=== PATIENT | female | born 1960 | race Caucasian/White ===

== ENCOUNTER 2021-11-01 09:58 | Inpatient (IN) ==
--- NOTE | 2021-11-01 11:11 | Emergency Department Note ---
History of Present Illness General Chief complaint: Illness Stated complaint: SLURRED SPEECH, DIARRHEA, Time Seen by Provider: 11/01/21 10:47 Source: patient and family Mode of arrival: wheelchair History of Present Illness Provider complaint: dizzy, slurred speech, diarrhea Onset (ago): day(s) 4 Associated symptoms: + loss of appetite, + malaise and + weakness; no chest pain, no fever/chills, no headaches, no nausea/vomiting or no syncope Treatments prior to arrival: none This is a 61-year-old female who presents the emergency department complaining of dizziness, difficulty walking, slurred speech, and diarrhea. Patient states 1 week ago she felt pressure in bilateral ears, denies rhinorrhea, nasal congestion, sore throat, or headaches at that time. She states Monday she went to her PCPs office and was told she had fluid behind both ears and was started on amoxicillin. Patient states she is been taking that since and not noticed any improvement. at bedside states Monday the began noticing she appeared dizzy and off balance and also had thickened and slightly slurred speech. Patient states she feels she can speak well adjust "comes out sounding funny". Patient states she does feel weak and has difficult time walking. states she has to hold onto things and shuffles at times. Patient does have a prior history of malignancy, and recent finding of a metastatic lesion to the liver. Patient had previously been treated with chemotherapy and radiation. She is scheduled to begin radiation to the lesion on her liver soon. Patient denies fevers or chills. states she was also tested for Covid last week which was negative. No prior history of vertigo. Pt seen during a time of high acuity and national emergency pandemic while wearing PPE. Home Medications Medication Instructions Recorded Confirmed Type multivitamin (Multiple Vitamins) 1 tab PO DAILY #90 tab 05/27/19 11/01/21 Rx buspirone 15 mg tablet 15 mg PO BID #60 tab 08/02/21 11/01/21 Rx amoxicillin 875 mg-potassium 1 tab PO BID 11/01/21 11/01/21 History clavulanate 125 mg tablet Allergies Allergy/AdvReac Type Severity Reaction Status Date / Time Aetejmn-GGS-GeE Reductase AdvReac LEG CRAMPS Verified 06/25/21 10:34 Inhibitor [Fawfsgb-Dke-Mrh Reductase Inhibitor] Past Med/Surg History Medical History (Updated 11/02/21 @ 17:45 by Roya Amezcua DO) Anxiety High blood pressure "at times will be elevated" Hx of skin cancer, basal cell NOSE Hyperlipidemia Internal hemorrhoids Perineal mass in female + CANCER (NEW DX) Surgical History Family history of reaction to anesthesia MOTHER-COULD FEEL EVERYTHING DURING PAST COLONOSCOPY History of tooth extraction Family History Mother No problems noted. Father Myocardial infarction Sister Endometrial cancer Son delivery Son No problems noted. Daughter No problems noted. 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 Beliefs That Will Affect Care: None marital status: Current Living Situation: Spouse Current Living Situation Comment: SPOUSE AND SON current occupational status: employed current occupation: [employer] Other Information That Helps Us Care for You: No Feels Safe at Home: Yes Safety Concerns: Feels Safe At This Time Childhood Exposure to Second-Hand Smoke: No caffeine: Yes (coffee, tea ) during the past year weight has: remained stable Dental Care, Regularly: Yes Physical Activity Frequency: Daily Seatbelt Use: always Sunscreen Use: Yes Assistive Devices: None Review of Systems A total of 10 systems reviewed and were otherwise negative All systems reviewed & are unremarkable except as noted in HPI & below Physical Exam Vital Signs Vital Signs - 24 hr 11/01/21 10:02 Temperature 36.4 C L Temperature Source Temporal Artery Scan Pulse Rate 109 H Respiratory Rate 16 Respiratory Effort / Characteristics Non-Labored Respiratory Depth Normal Blood Pressure 126/76 Blood Pressure Mean 92 Pulse Oximetry 98 Oxygen Delivery Method Room Air Sepsis Recent Fever Within 48 Hours No Sepsis New/Unexplained Change in Mental Status No Sepsis Action Taken by Nursing No Action Required GENERAL: alert, unwell appearing, well nourished, no distress, non-toxic EYE EXAM: normal conjunctiva, PERRL and EOM's grossly intact, slight rightward horizontal nystagmus OROPHARYNX: no exudate, no erythema, lips, buccal mucosa, and tongue normal and mucous membranes are moist NECK: supple, no nuchal rigidity, no adenopathy, non-tender LUNGS: Clear to auscultation. Normal chest wall mechanics, no w/r/r HEART: no murmurs, S1 normal and S2 normal ABDOMEN: abdomen soft, non-tender, normo-active bowel sounds, no masses, no rebound or guarding. BACK: Back is symmetrical on inspection and there is no deformity, no midline tenderness, no CVA tenderness. SKIN: no rashes and no bruising UPPER EXTREMITIES: upper extremities are grossly normal. FROM, nml pulses b/l. LOWER EXTREMITIES: No pitting edema. FROM, nml pulses b/l. NEURO EXAM: Normal sensorium, cranial nerves II-XII grossly intact, normal speech, no gross weakness of arms, no gross weakness of legs. Gross sensation intact. Course Administered Medications Buspirone HCl (Buspirone 15 Mg Tab) 15 mg PO BID [facility] Stop: 12/01/21 20:59 Last Admin: 11/02/21 08:00 Dose: 15 mg Documented by: [id number] Admin: 11/01/21 21:15 Dose: 15 mg Documented by: [id number] Enoxaparin Sodium (Enoxaparin Inj 40 Mg/0.4 Ml Syr) 40 mg SQ Q24H JUNITO Stop: 12/01/21 16:59 Last Admin: 11/01/21 17:22 Dose: 40 mg Documented by: [id number] Calcitonin [place] 200 units/ (Syringe) 1 mls @ 0 mls/sec SQ Q12H JUNITO Stop: 12/01/21 16:59 Last Admin: 11/02/21 05:28 Dose: 1 mls/sec Documented by: [id number] Admin: 11/01/21 17:21 Dose: 2 mls/sec Documented by: [id number] Potassium Chloride/Dextrose/Sod Cl (D5nss + 20meq Kcl) 20 meq in 1,000 mls @ 100 mls/hr IV .Q10H JUNITO; Protocol Stop: 12/02/21 13:59 Last Admin: 03/22/22 14:17 Dose: 100 mls/hr Documented by: [id number] Discontinued Medications Sodium Chloride (Nss 1000ml) 1,000 mls @ 125 mls/hr IV .Q8H JUNITO Stop: 12/01/21 11:14 Last Infusion: 11/01/21 14:31 Dose: 0 mls/hr Documented by: [id number] Admin: 11/01/21 11:19 Dose: 125 mls/hr Documented by: [id number] Parenteral Electrolytes (Plasma-Lyte A) 1,000 mls @ 100 mls/hr IV .Q10H JUNITO Stop: 12/01/21 13:59 Last Infusion: 11/02/21 13:39 Dose: 0 mls/hr Documented by: [id number] Admin: 11/02/21 10:54 Dose: 100 mls/hr Documented by: [id number] Infusion: 11/02/21 10:54 Dose: 175 mls/hr Documented by: [id number] Admin: 11/02/21 08:04 Dose: 175 mls/hr Documented by: [id number] Infusion: 11/02/21 08:04 Dose: 175 mls/hr Documented by: [id number] Admin: 11/02/21 03:49 Dose: 175 mls/hr Documented by: [id number] Infusion: 11/02/21 03:48 Dose: 0 mls/hr Documented by: [id number] Admin: 11/01/21 21:59 Dose: 175 mls/hr Documented by: [id number] Infusion: 11/01/21 21:59 Dose: 0 mls/hr Documented by: [id number] Admin: 11/01/21 14:31 Dose: 175 mls/hr Documented by: [id number] Zoledronic Acid (Reclast) 5 mg in 100 mls @ 400 mls/hr IV ONE ONE Stop: 11/01/21 17:29 Last Infusion: 11/01/21 17:59 Dose: 0 mls/hr Documented by: [id number] Admin: 11/01/21 17:25 Dose: 400 mls/hr Documented by: [id number] Ioversol (Optiray 320 125ml) 120 ml IV ONCE ONE Stop: 11/01/21 12:25 Last Admin: 11/01/21 12:24 Dose: 120 ml Documented by: [id number] Potassium Chloride (Potassium Chloride Crtab 20 Meq Tabcr) 40 meq PO NOW STA Stop: 11/01/21 12:03 Last Admin: 11/01/21 12:06 Dose: 40 meq Documented by: [id number] Potassium Chloride (Potassium Chloride Crtab 20 Meq Tabcr) 20 meq PO NOW STA Stop: 11/02/21 13:35 Last Admin: 11/02/21 14:18 Dose: 20 meq Documented by: [id number] Medical Decision Making Differential Diagnosis Differential diagnosis includes etiologies such as benign positional vertigo, dehydration, hypovolemia, anemia, tumor, infection, hypoglycemia, electrolyte abnormalities, cardiac sources, intracerebral event, toxicologic, neurologic, as well as others were entertained. Medical Records Attestation: I reviewed the patient's medical records. Home Medications Current Medication List: was personally reviewed by me Laboratory Data Attestation: I reviewed the patient's lab results. Result diagrams: 11/02/21 06:52 11/02/21 06:52 Lab Results 11/01/21 11/01/21 11/01/21 Range/Units 10:23 10:23 10:23 WBC 10.79 (4.8-10.8) K/uL RBC 4.02 L (4.2-5.4) M/uL Hgb 12.1 (12.0-16.0) g/dL Hct 36.0 L (37-47) % MCV 89.6 (80-100) fL MCH 30.1 (25-34) pg MCHC 33.6 (32-36) g/dL RDW Std Deviation 43.2 (36.4-46.3) fL RDW Coeff of Joanne 13.2 (11.5-14.5) % Plt Count 414 H (130-400) K/uL MPV 9.6 (7.4-10.4) fL Immature Gran % (Auto) 0.1 % Neut % (Auto) 90.2 % Lymph % (Auto) 7.5 % [place] % (Auto) 1.9 % Eos % (Auto) 0.1 % Baso % (Auto) 0.2 % Neut # (Auto) 9.74 H (1.4-6.5) K/uL Lymph # (Auto) 0.81 L (1.2-3.4) K/uL [place] # (Auto) 0.20 (0.11-0.59) K/uL Eos # (Auto) 0.01 (0-0.5) K/uL Baso # (Auto) 0.02 (0-0.2) K/uL Immature Gran # (Auto) 0.01 (0.00-0.02) K/uL Sodium 137 (136-145) mmol/L Potassium 2.7 L (3.5-5.1) mmol/L Chloride 94 L (98-107) mmol/L Carbon Dioxide 34 H (21-32) mmol/L Anion Gap 9 (3-11) BUN 25 H (6-23) mg/dl Creatinine 0.99 (0.6-1.2) mg/dl Est Cr Clr Drug Dosing 52.5 ml/min Est GFR ( Amer) 71.3 ml/min Est GFR (Non-Af Amer) 61.5 ml/min BUN/Creatinine Ratio 25.3 H (10-20) Glucose 117 H (70-99(Fasting)) mg/dl Calcium 16.9 H* (8.5-10.1) mg/dl Ionized Calcium (1.12-1.32) mmol/L Magnesium 1.9 (1.7-2.4) mg/dl Total Bilirubin 0.8 (0.2-1.0) mg/dl AST 36 (13-39) U/L ALT 33 (7-52) U/L Alkaline Phosphatase 217 H (34-104) U/L Troponin I < 0.03 (0-0.04) ng/ml Total Protein 8.0 (6.0-8.3) gm/dl Albumin 4.0 (3.4-5.0) gm/dl Globulin 4.0 (2.5-4.0) gm/dl Albumin/Globulin Ratio 1.0 (0.9-2) Lipase 12 (11-82) U/L TSH 2.042 (0.300-4.500) uIu/ml Urine Color Urine Appearance (Clear) Urine pH (4.5-7.5) Ur Specific [place] (1.000-1.030) Urine Protein (Negative) Urine Glucose (UA) (Negative) Urine Ketones (Negative) Urine Blood (Negative) Urine Nitrite (Negative) Urine Bilirubin (Negative) Urine Urobilinogen (Negative) Ur Leukocyte Esterase (Negative) Urine WBC (Auto) (0-5) /hpf Urine RBC (Auto) (0-4) /hpf U Hyaline Cast (Auto) (0-5) /lpf U Epithel Cells (Auto) (0-5) /lpf Urine Bacteria (Auto) (Negative) Ur Renal Epithelial Cell SARS-CoV-2, RNA, NAAT (NEGATIVE) 11/01/21 11/01/21 11/01/21 Range/Units 12:10 12:59 13:57 WBC (4.8-10.8) K/uL RBC (4.2-5.4) M/uL Hgb (12.0-16.0) g/dL Hct (37-47) % MCV (80-100) fL MCH (25-34) pg MCHC (32-36) g/dL RDW Std Deviation (36.4-46.3) fL RDW Coeff of Joanne (11.5-14.5) % Plt Count (130-400) K/uL MPV (7.4-10.4) fL Immature Gran % (Auto) % Neut % (Auto) % Lymph % (Auto) % [place] % (Auto) % Eos % (Auto) % Baso % (Auto) % Neut # (Auto) (1.4-6.5) K/uL Lymph # (Auto) (1.2-3.4) K/uL [place] # (Auto) (0.11-0.59) K/uL Eos # (Auto) (0-0.5) K/uL Baso # (Auto) (0-0.2) K/uL Immature Gran # (Auto) (0.00-0.02) K/uL Sodium (136-145) mmol/L Potassium (3.5-5.1) mmol/L Chloride (98-107) mmol/L Carbon Dioxide (21-32) mmol/L Anion Gap (3-11) BUN (6-23) mg/dl Creatinine (0.6-1.2) mg/dl Est Cr Clr Drug Dosing ml/min Est GFR ( Amer) ml/min Est GFR (Non-Af Amer) ml/min BUN/Creatinine Ratio (10-20) Glucose (70-99(Fasting)) mg/dl Calcium (8.5-10.1) mg/dl Ionized Calcium 1.95 H* (1.12-1.32) mmol/L Magnesium (1.7-2.4) mg/dl Total Bilirubin (0.2-1.0) mg/dl AST (13-39) U/L ALT (7-52) U/L Alkaline Phosphatase (34-104) U/L Troponin I (0-0.04) ng/ml Total Protein (6.0-8.3) gm/dl Albumin (3.4-5.0) gm/dl Globulin (2.5-4.0) gm/dl Albumin/Globulin Ratio (0.9-2) Lipase (11-82) U/L TSH (0.300-4.500) uIu/ml Urine Color Yellow Urine Appearance Clear (Clear) Urine pH 6.0 (4.5-7.5) Ur Specific [place] 1.013 (1.000-1.030) Urine Protein Trace H (Negative) Urine Glucose (UA) Negative (Negative) Urine Ketones Negative (Negative) Urine Blood 2+ H (Negative) Urine Nitrite Negative (Negative) Urine Bilirubin Negative (Negative) Urine Urobilinogen Negative (Negative) Ur Leukocyte Esterase Negative (Negative) Urine WBC (Auto) 10-30 H (0-5) /hpf Urine RBC (Auto) 10-30 H (0-4) /hpf U Hyaline Cast (Auto) 1-5 (0-5) /lpf U Epithel Cells (Auto) >30 H (0-5) /lpf Urine Bacteria (Auto) Negative (Negative) Ur Renal Epithelial Cell Not Reportable SARS-CoV-2, RNA, NAAT NEGATIVE (NEGATIVE) Imaging Data Radiologist's Impression: HEAD CT NONCONTRAST, HEAD CTA CT DOSE: 934.53 mGy.cm HISTORY: dizzy, ataxia TECHNIQUE: Multiaxial CT images of the head were performed without the use of intravenous contrast. Multiaxial CT images of the head were performed following the intravenous administration of contrast to evaluate the major cerebral arteri es. Maximum intensity projection images were also obtained. Automated exposure control was utilized for this study. A dose lowering technique was utilized adhering to the principles of ALARA. Comparison: None. Findings: Noncontrast head CT: The paranasal sinuses and mastoid air cells are clear. The calvarium and skull base are intact. The ventricles and sulci are within normal limits. There is no mass, hematoma, midline shift, or acute infarct. Head CTA: Mild calcified plaque within the bilateral carotid siphons. The bilateral distal vertebral arteries, intracranial internal carotid arteries, and basilar artery are widely patent. Incidental note is made of a persistent left posterior circulation. There is no significant stenosis, occlusion, or aneurysm within the bilateral ACAs, MCAs, or sap basis. The major dural venous sinuses are patent. Impression: 1. No acute intracranial abnormality. 2. No significant stenosis, occlusion, or aneurysm within the [place]. ACT 112: Negative or not required by law. Electronically signed by: Elfego Chiang M.D. 11/01/2021 12:[address] angio neck with con CLINICAL HISTORY: dizzy, ataxia COMPARISON STUDY: No previous studies for comparison. CT DOSE: TECHNIQUE: CT Angio of the neck was performed.followed by image post processing with coronal, and sagittal MIP reformats.. Stenosis assessment by NASCET criteria. Contrast Volume: Optiray 320, 120 ml FINDINGS: Vascular findings: Right common carotid artery: Patent without significant stenosis. Right internal carotid artery: Patent without significant stenosis. Right vertebral artery: Patent without significant stenosis. Left common carotid artery: Patent without significant stenosis. Left internal carotid artery: Patent without significant stenosis. Left vertebral artery: Patent without significant stenosis. The left vertebral artery is slightly more dominant than the right. Nonvascular findings: The parotid and submandibular salivary glands appear normal. There is no enlarged cervical adenopathy noted. The airway appears patent. The thyroid gland appears within normal limits. The lung apices appear within normal limits. Impression: Essentially negative CT angiogram of the neck with contrast. ACT 112: Negative or not required by law. Electronically signed by: Choco Isaac M.D. 11/01/2021 12:45 PM ECG Data Attestation: I personally reviewed and interpreted this ECG as follows: Indication: + weakness Rate (beats per minute): 92 Rhythm: + normal sinus ECG Intervals/blocks: + Normal QRS and + Normal QT ECG [place]: + Normal ECG ST segments: + Nonspecific ST abnormalities MDM Narrative This is a 61-year-old female who presents due to concern for dizziness, weakness, ataxia, recent diarrhea, and slurred speech. Patient does have a history of malignancy and does have a known liver lesion and is set to undergo radiation. Patient did recently have antibiotics which may have contributed to the diarrhea and weakness. Patient found to have significant hypercalcemia and hypokalemia. I suspect the hypokalemia was due to her dehydration. He did have concern for the hypercalcemia given the history of malignancy. An iCal was added. No evidence of JENNIFER. CT imaging of the patient's brain was unremarkable. I did discuss all results with the patient and at bedside and discussed need for additional inpatient evaluation and management. Patient was given gentle IV fluid rehydration while in the emergency room. Case discussed with hospitalist for additional evaluation and management. An order was placed for continuous cardiac monitoring. The monitor shows a rate of _86__ with __normal sinus_ rhythm. Impression & Plan Weakness, Hypercalcemia, Hypokalemia, Ataxia Discharge Plan Visit Data Chief Complaint: Illness Stated Complaint: SLURRED SPEECH, DIARRHEA, ED Provider: Roya Amezcua Discharge Problem: Weakness, Hypercalcemia, Hypokalemia, Ataxia Patient Disposition: Admitted As Inpatient Discharge Instructions Interventions: ED Discharge Assessment Last Done: 11/01/21 16:02
[2021-11-01] MEDS ORDERED: SODIUM CHLORIDE 0.9% 1000ML 1,000 ML IV SCH (11:15)
[2021-11-01 11:20] LABS: Basophils # (auto) 0.02 K/uL (0-0.2); Basophils % (auto) 0.2 %; Eosinophils # (auto) 0.01 K/uL (0-0.5); Eosinophils % (auto) 0.1 %; Hemoglobin 12.1 g/dL (12.0-16.0); Immature Granulocytes # (auto) 0.01 K/uL (0.00-0.02); Immature Granulocytes % (auto) 0.1 %; Lymphocytes # (auto) 0.81 K/uL (1.2-3.4); Lymphocytes % (auto) 7.5 %; Mean Corpuscular Hemoglobin 30.1 pg (25-34); Mean Corpuscular Hgb Conc 33.6 g/dL (32-36); Mean Corpuscular Volume 89.6 fL (80-100); Mean Platelet Volume 9.6 fL (7.4-10.4); Monocytes % (auto) 1.9 %; Neutrophils # (auto) 9.74 K/uL (1.4-6.5); Neutrophils % (auto) 90.2 %; Platelet Count 414 K/uL (130-400); RDW Coefficient of Variation 13.2 % (11.5-14.5); RDW Standard Deviation 43.2 fL (36.4-46.3); Red Blood Count 4.02 M/uL (4.2-5.4); White Blood Count 10.79 K/uL (4.8-10.8)
[2021-11-01 11:33] LABS: Troponin I < 0.03 ng/ml (0-0.04)
[2021-11-01 11:41] LABS: Alanine Aminotransferase 33 U/L (7-52); Alkaline Phosphatase 217 U/L (34-104); Anion Gap 9 (3-11); Aspartate Aminotransferase 36 U/L (13-39); BUN Creatinine Ratio 25.3 (10-20); Bilirubin,Total 0.8 mg/dl (0.2-1.0); Blood Urea Nitrogen 25 mg/dl (6-23); Carbon Dioxide 34 mmol/L (21-32); Chloride 94 mmol/L (98-107); Creatinine Clr Calc Pharmacy 52.5 ml/min; Est GFR (African American) 71.3 ml/min; Est GFR (Non-African American) 61.5 ml/min; Glucose 117 mg/dl (70-99(Fasting)); Lipase 12 U/L (11-82); Magnesium 1.9 mg/dl (1.7-2.4); Potassium 2.7 mmol/L (3.5-5.1); Sodium 137 mmol/L (136-145)
[2021-11-01 11:42] LABS: Calcium 16.9 mg/dl (8.5-10.1)
[2021-11-01] MEDS ORDERED: POTASSIUM CHLORIDE CRTAB 20 MEQ TABCR PO STA (12:02)
[2021-11-01] MEDS ORDERED: OPTIRAY 320 125ml IV ONE (12:24)
--- NOTE | 2021-11-01 12:48 | CT Scan Report ---
CT angio neck with con CLINICAL HISTORY: dizzy, ataxia COMPARISON STUDY: No previous studies for comparison. CT DOSE: TECHNIQUE: CT Angio of the neck was performed.followed by image post processing with coronal, and sa gittal MIP reformats.. Stenosis assessment by NASCET criteria. Contrast Volume: Optiray 320, 120 ml FINDINGS: Vascular findings: Right common carotid artery: Patent without significant stenosis. Right internal carotid artery: Patent without significant stenosis. Right vertebral artery: Patent without significant stenosis. Left common carotid artery: Patent without significant stenosis. Left internal carotid artery: Patent without significant stenosis. Left vertebral artery: Patent without significant stenosis. The left vertebral artery is slightly mor e dominant than the right. Nonvascular findings: The parotid and submandibular salivary glands appear normal. There is no enlarged cervical adenopathy noted. The airway appears patent. The thyroid gland appears within normal limits. The lung apices ap pear within normal limits. Impression: Essentially negative CT angiogram of the neck with contrast. ACT 112: Negative or not required by law. Electronically signed by: Choco Isaac M.D. 11/01/2021 12:45 PM
--- NOTE | 2021-11-01 12:53 | CT Scan Report ---
HEAD CT NONCONTRAST, HEAD CTA CT DOSE: 934.53 mGy.cm HISTORY: dizzy, ataxia TECHNIQUE: Multiaxial CT images of the head were performed without the use of intravenous contrast. M ultiaxial CT images of the head were performed following the intravenous administration of contrast t o evaluate the major cerebral arteries. Maximum intensity projection images were also obtained. Autom ated exposure control was utilized for this study. A dose lowering technique was utilized adhering t o the principles of ALARA. Comparison: None. Findings: Noncontrast head CT: The paranasal sinuses and mastoid air cells are clear. The calvarium and skull b ase are intact. The ventricles and sulci are within normal limits. There is no mass, hematoma, midlin e shift, or acute infarct. Head CTA: Mild calcified plaque within the bilateral carotid siphons. The bilateral distal vertebral arteries, intracranial internal carotid arteries, and basilar artery are widely patent. Incidental no te is made of a persistent left posterior circulation. There is no significant stenosis, occlus ion, or aneurysm within the bilateral ACAs, MCAs, or hand bender. The major dural venous sinuses are patent. Impression: 1. No acute intracranial abnormality. 2. No significant stenosis, occlusion, or aneurysm within the [place]. ACT 112: Negative or not required by law. Electronically signed by: Elfego Chiang M.D. 11/01/2021 12:51 PM
--- NOTE | 2021-11-01 12:53 | CT Scan Report ---
HEAD CT NONCONTRAST, HEAD CTA CT DOSE: 934.53 mGy.cm HISTORY: dizzy, ataxia TECHNIQUE: Multiaxial CT images of the head were performed without the use of intravenous contrast. M ultiaxial CT images of the head were performed following the intravenous administration of contrast t o evaluate the major cerebral arteries. Maximum intensity projection images were also obtained. Autom ated exposure control was utilized for this study. A dose lowering technique was utilized adhering t o the principles of ALARA. Comparison: None. Findings: Noncontrast head CT: The paranasal sinuses and mastoid air cells are clear. The calvarium and skull b ase are intact. The ventricles and sulci are within normal limits. There is no mass, hematoma, midlin e shift, or acute infarct. Head CTA: Mild calcified plaque within the bilateral carotid siphons. The bilateral distal vertebral arteries, intracranial internal carotid arteries, and basilar artery are widely patent. Incidental no te is made of a persistent left posterior circulation. There is no significant stenosis, occlus ion, or aneurysm within the bilateral ACAs, MCAs, or cream be[place]. The major dural venous sinuses are patent. Impression: 1. No acute intracranial abnormality. 2. No significant stenosis, occlusion, or aneurysm within the [place]. ACT 112: Negative or not required by law. Electronically signed by: Elfego Chiang M.D. 11/01/2021 12:51 PM
[2021-11-01 13:42] LABS: Appearance Urine Clear (Clear); Bacteria Urine Automated Negative (Negative); Bilirubin Urine Negative (Negative); Blood Urine 2+ (Negative); Color Urine Yellow; Epithelial Cell Urine Auto >30 /lpf (0-5); Glucose Urine UA Negative (Negative); Ketones Urine Negative (Negative); Leukocyte Esterase Urine Negative (Negative); Nitrite Urine Negative (Negative); Protein Urine Trace (Negative); Specific Gravity Urine 1.013 (1.000-1.030); Urobilinogen Urine Negative (Negative)
[2021-11-01] MEDS: NORMOSOL-R 1,000 ML IV SCH ×2 (14:31→21:59)
--- NOTE | 2021-11-01 14:42 | History & Physical Report ---
Date of Service November 01, 2021 Assessment & Plan (1) Hypercalcemia: Plan: Acute mild/severe Hypercalcemia- iCA 1.95 (mild), serum CA 16 (severe) - Unfortunately likely related to tumor secretion of PTH - PTH, PO4 pending if PTH low- PTH-RP sent - TSH normal - Normosol at 175ml/hour - Calcitonin 4 units q12 - Zoledronic Acid- or equivalent- 4mg/kg IV x1 in conjunction with Calcitonin - BMP/iCA q6 hours- Therapy should be based on ionized calcium levels - Neuro exams q6 hours - ICU if iCA continues to increase or change in patient mentation (2) Liver tumor: Plan: Liver tumor x2- unsure of makeup of these - She had undergone radiation embolization x1 - With new tumor at ? right lobe of liver noted 08/07- she is to start chemotherapy this - will need to discuss with her Oncologist- to bring in phone number - Consider re-imaging for metastic disease- discuss as above CT scan: 08/03 On noncontrast images, there is heterogeneous attenuation of the liver parenchy ma with low-attenuation lesions present. Following contrast administration, there are at least 7 retrogenesis and ring-enhancing lesions present throughout the right lobe of the liver. They have increased in size and number since the previous examination with the largest lesion now measuring approximately 4.8 x 4.6 cm. All of the other lesions are also increased in size. Findings are characteristic of worsening metastatic liver disease. PET Scan 12/02- 1. Decreased size and metabolic activity of the large pelvic mass centered within the vulva and perineum along with decreased size and metabolic activity of the pathologic inguinal and iliac chain lymph nodes. 2. New hepatic metastasis with periaortic lymphatic metastasis. Findings compatible with mixed treatment response. 3. No evidence of thoracic metastatic disease. 4. Additional findings as above. 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 During follow up she was noted to have liver mass and underwent radio-embolic particles injection- she had follow up screening performed in 08-03, which revealed another hepatic mass and is scheduled to have chemotherapy this week 11/04/21. She follows with [facility] soren. She comes to the emergency room today for complaints of dizziness, increase fatigue, and decrease in overall strength. In the EMD she had routine labs drawn, CXR, ECG, CT of head and CTA of the head and neck performed. Imaging modalities negative for acute intracranial process, but laboratory workup came back with severe hypercalcemia to 16.9 with ionized calcium of 1.95. Her Potassium was also noted to be low and was replaced orally. She was started on 0.9% saline infusion at 125ml/hour and Hospitalist service was consulted for admission. Overall the patient has few systemic symptoms and is genally briskly awake and conversant but has endorsed polyuria and being more thirsty as well. Patient will be admitted to the PCU with neuro exams and monitor her levels over the next 24 hours. She will receive Calcitonin 4units/kg sq q12 and ZDA 4mg IV x1 and continue with Normosol infusion @175ml/hr. Continue workup with PTH, Phos, and PTH-RP if needed. She was recently started on amoxicillin from urgent care for concern of EENT infection with her dizziness. Allergies Allergy/AdvReac Type Severity Reaction Status Date / Time Iqwjttc-PWF-UiV Reductase AdvReac LEG CRAMPS Verified 06/25/21 10:34 Inhibitor [Gjjkwlr-Lij-Vrp Reductase Inhibitor] Home Medications Medication Instructions Recorded Confirmed Type multivitamin (Multiple Vitamins) 1 tab PO DAILY #90 tab 05/27/19 11/01/21 Rx buspirone 15 mg tablet 15 mg PO BID #60 tab 08/02/21 11/01/21 Rx amoxicillin 875 mg-potassium 1 tab PO BID 11/01/21 11/01/21 History clavulanate 125 mg tablet Past Med/Surg History Medical History (Updated 11/02/21 @ 13:08 by Brandon Croft) Anxiety High blood pressure "at times will be elevated" Hx of skin cancer, basal cell NOSE Hyperlipidemia Internal hemorrhoids Perineal mass in female + CANCER (NEW DX) Surgical History Family history of reaction to anesthesia MOTHER-COULD FEEL EVERYTHING DURING PAST COLONOSCOPY History of tooth extraction Family History Mother No problems noted. Father Myocardial infarction Sister Endometrial cancer Son delivery Son No problems noted. Daughter No problems noted. Social History Smoking Status: Former smoker Tobacco Type: Cigarettes Cigarettes Per Day: 1 P Q 2 days x 30 yrs; Number of Years Since Quit: 2; Second Hand Exposure: No; Do You Dip or Chew Tobacco: No; Tobacco Cessation Education Requested by Patient: No Hx Alcohol Use: No Hx Substance Use: No Preferred Language: Sami Communication Ability: Effective Visual Impairment: No Limitations Hearing Ability: Normal Director Of Loss Prevention Required: No Beliefs That Will Affect Care: None marital status: Current Living Situation: Spouse Current Living Situation Comment: SPOUSE AND SON current occupational status: employed current occupation: [employer] Other Information That Helps Us Care for You: No Feels Safe at Home: Yes Safety Concerns: Feels Safe At This Time Childhood Exposure to Second-Hand Smoke: No caffeine: Yes (coffee, tea ) during the past year weight has: remained stable Dental Care, Regularly: Yes Physical Activity Frequency: Daily Seatbelt Use: always Sunscreen Use: Yes Assistive Devices: None Review of Systems Review of Systems: REVIEW OF SYSTEMS: Constitutional: No fever, sweats or chills Eyes: No diplopia, no worsening or blurred vision ENT: normal hearing, no trouble swallowing Respiratory: No cough, sputum, dyspnea at rest or on exertion Cardiovascular: No chest pain, tightness or palpitations Abdomen: No pain, nausea, vomiting, diarrhea or constipation Musculoskeletal: No joint pain, calf pain, swelling Neurologic: (+) fatigue, generalized weakness, NO numbness/tingling, or balance problems Psychiatric: No anxiety or depression Skin: No rash or itch Physical Exam Physical Exam: PHYSICAL EXAM: General: fatigued but awake, alert, no apparent distress Head: Normocephalic, atraumatic ENT: PERRL, EOMI, no pharyngeal exudate, mucous membranes dry, with thrush on tongue Neuro: AAO x 3, speech clear and appropriate, strength intact bilaterally 5/5, sensation intact and equal all extremities and dermatomes, no pronator drift Chest: equal rise and fall of the chest, no accessory muscle use, no heaves or thrills, Clear to auscultation, on room air, Cardiac: Regular rate and rhythm, telemetry reviewed, skin warm dry, cap refill <3 seconds, peripheral pulses +2 no JVD, no murmur, no edema GI: NABS x 4 quadrants, soft, nontender to palpation, no rebound, guarding or tenderness : Spontaneously voiding, no pain, no CVA tenderness, Extremities: Normal inspection, no peripheral edema or erythema, calfs nontender to palpation, no tremors, denies any tetany, no bone pain and no skeletal abnormalities with palpation Psych: Normal mood and affect Skin: no rash or erythema Results & Data Results & Data ([facility]) Vital Signs (Past 12 Hours) Vital Signs Temp Pulse Pulse Resp BP BP Pulse Ox 11/01/21 13:00 77 18 122/77 97 11/01/21 11:22 83 18 115/66 95 11/01/21 10:02 36.4 C L 109 H 16 126/76 98 Laboratory Results Abnormal lab results 11/01/21 11/01/21 11/01/21 Range/Units 10:23 10:23 12:10 RBC 4.02 L (4.2-5.4) M/uL Hct 36.0 L (37-47) % Plt Count 414 H (130-400) K/uL Neut # (Auto) 9.74 H (1.4-6.5) K/uL Lymph # (Auto) 0.81 L (1.2-3.4) K/uL Potassium 2.7 L (3.5-5.1) mmol/L Chloride 94 L (98-107) mmol/L Carbon Dioxide 34 H (21-32) mmol/L BUN 25 H (6-23) mg/dl BUN/Creatinine Ratio 25.3 H (10-20) Glucose 117 H (70-99(Fasting)) mg/dl Calcium 16.9 H* (8.5-10.1) mg/dl Ionized Calcium (1.12-1.32) mmol/L Alkaline Phosphatase 217 H (34-104) U/L Urine Protein Trace H (Negative) Urine Blood 2+ H (Negative) Urine WBC (Auto) 10-30 H (0-5) /hpf Urine RBC (Auto) 10-30 H (0-4) /hpf U Epithel Cells (Auto) >30 H (0-5) /lpf 11/01/21 Range/Units 12:59 RBC (4.2-5.4) M/uL Hct (37-47) % Plt Count (130-400) K/uL Neut # (Auto) (1.4-6.5) K/uL Lymph # (Auto) (1.2-3.4) K/uL Potassium (3.5-5.1) mmol/L Chloride (98-107) mmol/L Carbon Dioxide (21-32) mmol/L BUN (6-23) mg/dl BUN/Creatinine Ratio (10-20) Glucose (70-99(Fasting)) mg/dl Calcium (8.5-10.1) mg/dl Ionized Calcium 1.95 H* (1.12-1.32) mmol/L Alkaline Phosphatase (34-104) U/L Urine Protein (Negative) Urine Blood (Negative) Urine WBC (Auto) (0-5) /hpf Urine RBC (Auto) (0-4) /hpf U Epithel Cells (Auto) (0-5) /lpf Diagnostic Findings Head CT 11/01/21 11:[address] NONCONTRAST, HEAD CTA CT DOSE: 934.53 mGy.cm HISTORY: dizzy, ataxia TECHNIQUE: Multiaxial CT images of the head were performed without the use of intravenous contrast. Multiaxial CT images of the head were performed following the intravenous administration of contrast to evaluate the major cerebral arteries. Maximum intensity projection images were also obtained. Automated exposure control was utilized for this study. A dose lowering technique was utilized adhering to the principles of ALARA. Comparison: None. Findings: Noncontrast head CT: The paranasal sinuses and mastoid air cells are clear. The calvarium and skull base are intact. The ventricles and sulci are within normal limits. There is no mass, hematoma, midline shift, or acute infarct. Head CTA: Mild calcified plaque within the bilateral carotid siphons. The bilateral distal vertebral arteries, intracranial internal carotid arteries, and basilar artery are widely patent. Incidental note is made of a persistent left posterior circulation. There is no significant stenosis, occlusion, or aneurysm within the bilateral ACAs, MCAs, or host/hostess head. The major dural venous sinuses are patent. Impression: 1. No acute intracranial abnormality. 2. No significant stenosis, occlusion, or aneurysm within the red [place] of [place]. ACT 112: Negative or not required by law. Electronically signed by: Elfego Chiang M.D. 11/01/2021 12:51 PM Head CTA 11/01/21 11:[address] NONCONTRAST, HEAD CTA CT DOSE: 934.53 mGy.cm HISTORY: dizzy, ataxia TECHNIQUE: Multiaxial CT images of the head were performed without the use of intravenous contrast. Multiaxial CT images of the head were performed following the intravenous administration of contrast to evaluate the major cerebral arteries. Maximum intensity projection images were also obtained. Automated exposure control was utilized for this study. A dose lowering technique was utilized adhering to the principles of ALARA. Comparison: None. Findings: Noncontrast head CT: The paranasal sinuses and mastoid air cells are clear. The calvarium and skull base are intact. The ventricles and sulci are within normal limits. There is no mass, hematoma, midline shift, or acute infarct. Head CTA: Mild calcified plaque within the bilateral carotid siphons. The bilateral distal vertebral arteries, intracranial internal carotid arteries, and basilar artery are widely patent. Incidental note is made of a persistent left posterior circulation. There is no significant stenosis, occlusion, or aneurysm within the bilateral ACAs, MCAs, or host/hostess head. The major dural venous sinuses are patent. Impression: 1. No acute intracranial abnormality. 2. No significant stenosis, occlusion, or aneurysm within the red cliff of [place]. ACT 112: Negative or not required by law. Electronically signed by: Elfego Chiang M.D. 11/01/2021 12:51 PM Neck CTA 11/01/21 11:06 CT angio neck with con CLINICAL HISTORY: dizzy, ataxia COMPARISON STUDY: No previous studies for comparison. CT DOSE: TECHNIQUE: CT Angio of the neck was performed.followed by image post processing with coronal, and sagittal MIP reformats.. Stenosis assessment by NASCET criteria. Contrast Volume: Optiray 320, 120 ml FINDINGS: Vascular findings: Right common carotid artery: Patent without significant stenosis. Right internal carotid artery: Patent without significant stenosis. Right vertebral artery: Patent without significant stenosis. Left common carotid artery: Patent without significant stenosis. Left internal carotid artery: Patent without significant stenosis. Left vertebral artery: Patent without significant stenosis. The left vertebral artery is slightly more dominant than the right. Nonvascular findings: The parotid and submandibular salivary glands appear normal. There is no enlarged cervical adenopathy noted. The airway appears patent. The thyroid gland appears within normal limits. The lung apices appear within normal limits. Impression: Essentially negative CT angiogram of the neck with contrast. ACT 112: Negative or not required by law. Electronically signed by: Choco Isaac M.D. 11/01/2021 12:45 PM Medications Administered Discontinued Medications Sodium Chloride (Nss 1000ml) 1,000 mls @ 125 mls/hr IV .Q8H [facility] Stop: 12/01/21 11:14 Last Admin: 11/01/21 11:19 Dose: 125 mls/hr Documented by: [id number] Ioversol (Optiray 320 125ml) 120 ml IV ONCE ONE Stop: 11/01/21 12:25 Last Admin: 11/01/21 12:24 Dose: 120 ml Documented by: [id number] Potassium Chloride (Potassium Chloride Crtab 20 Meq Tabcr) 40 meq PO NOW STA Stop: 11/01/21 12:03 Last Admin: 11/01/21 12:06 Dose: 40 meq Documented by: [id number] Home Medications multivitamin (Multiple Vitamins) 1 tab PO DAILY #90 tab 05/27/19 [Rx Confirmed 11/01/21] buspirone 15 mg tablet 15 mg PO BID #60 tab 08/02/21 [Rx Confirmed 11/01/21] amoxicillin 875 mg-potassium clavulanate 125 mg tablet 1 tab PO BID 11/01/21 [History Confirmed 11/01/21] Active Medications Parenteral Electrolytes (Plasma-Lyte A) 1,000 mls @ 175 mls/hr IV .Q5H43M [facility] Stop: 12/01/21 13:59 ECG Additional Comments: Normal sinus rhythm Possible Left atrial enlargement Nonspecific ST and T wave abnormality Abnormal ECG No previous ECGs available Code Status & VTE Plan Code Status CODE: FULL VTE: SCDS, Lovenox 40mg Subq daily VTE Prophylaxis Plan VTE Prophylaxis will be ordered: Yes Supervising Physician Co-Signing Physician Notes Attending Attestation and Admit Note - Pt seen/examined, chart reviewed, admit care plan d/w QASIM Fuentes. I agree w/ the goyal components of his admission documentation. 61yo female with stage 4 vulvar cancer (cancer of Bartholin's gland) with mets to liver, lymph nodes - presenting with increasing fatigue, dizziness, poor appetite. At time of ER presentation today her total calcium level was severely elevated at 16.9. She had CT/CTA of the head/neck - all wnl. No evidence of intra-cranial m etastatic disease. PMH/PSH/allergies/meds/sochx/famhx - reviewed VSS, afebrile gen - NAD, very tired/sleepy, looks ill mouth - MM dry, thrush on tongue neck - no lymph nodes heart - RRR, s1 s2 lungs - CTA b/l abd - soft NT BS+ ext - no edema, pulses 2+ b/l skin - poor turgor labs reviewed imaging reviewed intact PTH is suppressed A/P: 1. severe hypercalcemia - worrisome for PTH-related peptide induced hypercalcemia. PTH-RP is common with squamous cell cancers. Other possibility would be high calcium due to bone mets but she has no h/o such. Plan - copious isotonic fluids. Calcitonin 4 units/kg now; repeat if she has favorable response to such. Reclast IV x 1. Hold on diuretics for now. Place on tele. Serial labs. 2. acute metabolic encephalopathy - 2nd to #1. 3. candidiasis of mouth - nystatin solution 5cc qid. 4. squamous cell ca of Bartholin's gland - with liver mets. Brandon Croft MD PG Care Time/CCT Total # of Minutes Spent Total Time Spent with Patient: Total time spent is greater than 50% in coordination of care (as documented) at patient's floor/unit and/or counseling patient: Coding Level of Care Code 60129 Initial Inpt Care Lvl 3 Diagnoses Hypercalcemia E83.52 Hyperlipidemia E78.5 Carcinoma of Bartholin's gland C51.0 Squamous cell carcinoma of vulva C51.9 Liver tumor D49.0 Candidiasis of mouth and esophagus B37.81; B37.0 Acute metabolic encephalopathy G93.41
[2021-11-01 14:47] LABS: Magnesium 1.9 mg/dl (1.7-2.4); Phosphorus 2.2 mg/dl (2.5-4.9)
[2021-11-01 14:57] LABS: BUN Creatinine Ratio 26.4 (10-20); Calcium 15.9 mg/dl (8.5-10.1); Creatinine Clr Calc Pharmacy 57.1 ml/min; Est GFR (African American) 78.9 ml/min; Est GFR (Non-African American) 68.1 ml/min; Potassium 3.1 mmol/L (3.5-5.1)
[2021-11-01] MEDS ORDERED: ZOLEDRONIC ACID 4 MG in 0.9 % SODIUM CHLORIDE 100 ML IV ONE (17:00)
[2021-11-01] MEDS ORDERED: CALCITONIN SALMON 400 UNITS/2 ML SQ SCH (17:00)
--- NOTE | 2021-11-01 17:03 | Electrocardiogram Report ---
Test Reason : Blood Pressure : / mmHG Vent. Rate : 092 BPM Atrial Rate : 092 BPM P-R Int : 166 ms QRS Dur : 094 ms QT Int : 344 ms P-R-T Axes : 074 065 063 degrees QTc Int : 425 ms Normal sinus rhythm Possible Left atrial enlargement Nonspecific ST and T wave abnormality Abnormal ECG No previous ECGs available Confirmed by Sudheer Desir ([id number]) on 11/01/2021 5:03:19 PM Referred By: REFERRED SELF Confirmed By:Guero Desir
[2021-11-01] MEDS ORDERED: ZOLEDRONIC ACID 5 MG/100 ML IV ONE (17:15)
[2021-11-01] MEDS: CALCITONIN SALMON 200 UNITS in SYRINGE 0 ML SQ SCH (17:21)
[2021-11-01] MEDS: ENOXAPARIN INJ 40 MG/0.4 ML SYR SQ SCH (17:22)
[2021-11-01] MEDS: busPIRone 15 MG TAB PO SCH (21:15)
[2021-11-02] MEDS: NORMOSOL-R 1,000 ML IV SCH ×3 (03:49→10:54)
[2021-11-02] MEDS: CALCITONIN SALMON 200 UNITS in SYRINGE 0 ML SQ SCH ×2 (05:28→18:17)
[2021-11-02 07:29] LABS: Basophils # (auto) 0.01 K/uL (0-0.2); Basophils % (auto) 0.1 %; Eosinophils # (auto) 0.01 K/uL (0-0.5); Eosinophils % (auto) 0.1 %; Hematocrit (blood only) 29.9 % (37-47); Hemoglobin 10.2 g/dL (12.0-16.0); Immature Granulocytes # (auto) 0.01 K/uL (0.00-0.02); Immature Granulocytes % (auto) 0.1 %; Lymphocytes # (auto) 0.67 K/uL (1.2-3.4); Lymphocytes % (auto) 7.6 %; Mean Corpuscular Hemoglobin 30.1 pg (25-34); Mean Corpuscular Hgb Conc 34.1 g/dL (32-36); Mean Corpuscular Volume 88.2 fL (80-100); Mean Platelet Volume 9.1 fL (7.4-10.4); Monocytes # (auto) 0.19 K/uL (0.11-0.59); Monocytes % (auto) 2.1 %; Neutrophils # (auto) 7.96 K/uL (1.4-6.5); Platelet Count 275 K/uL (130-400); RDW Coefficient of Variation 13.3 % (11.5-14.5); RDW Standard Deviation 42.8 fL (36.4-46.3); Red Blood Count 3.39 M/uL (4.2-5.4); White Blood Count 8.85 K/uL (4.8-10.8)
[2021-11-02] MEDS: busPIRone 15 MG TAB PO SCH ×2 (08:00→21:01)
[2021-11-02 08:19] LABS: BUN Creatinine Ratio 28.6 (10-20); Calcium 12.7 mg/dl (8.5-10.1); Creatinine Clr Calc Pharmacy 73.4 ml/min; Est GFR (African American) 108.4 ml/min; Est GFR (Non-African American) 93.5 ml/min; Magnesium 1.9 mg/dl (1.7-2.4); Potassium 2.6 mmol/L (3.5-5.1)
[2021-11-02] MEDS ORDERED: POTASSIUM CHLORIDE CRTAB 20 MEQ TABCR PO STA (13:34)
--- NOTE | 2021-11-02 13:41 | Hospitalist Progress Note ---
Date of Service November 02, 2021 Assessment & Plan (1) Hypercalcemia: Plan: Acute mild/severe Hypercalcemia- iCA 1.95 (mild), serum CA 16 (severe) on admission. Improving with current treatment plan and IV fluids. Likely due to malignancy. PTH level is suppressed. Continue treatment with Calcitonin and IV fluids. She has received Zoledronic Acid. Serial lab studies (2) Liver tumor: Plan: Liver tumor x2- unsure of makeup of these - She had undergone radiation embolization x1 - With new tumor at ? right lobe of liver noted 08/07- she is to start chemotherapy this . CT scan: 08/03 On noncontrast images, there is heterogeneous attenuation of the liver parenchyma with low-attenuation lesions present. Following contrast administration, there are at least 7 retrogenesis and ring-enhancing lesions present throughout the right lobe of the liver. They have increased in size and number since the previous examination with the largest lesion now measuring approximately 4.8 x 4.6 cm. All of the other lesions are also increased in size. Findings are characteristic of worsening metastatic liver disease. PET Scan 12/02- 1. Decreased size and metabolic activity of the large pelvic mass centered within the vulva and perineum along with decreased size and metabolic activity of the pathologic inguinal and iliac chain lymph nodes. 2. New hepatic metastasis with periaortic lymphatic metastasis. Findings compatible with mixed treatment response. 3. No evidence of thoracic metastatic disease. 4. Additional findings as above. (3) Carcinoma of Bartholin's gland: Plan: completed beam radiation and chemo. Follows with [facility] in [place] (4) Squamous cell carcinoma of vulva: Plan: As above (5) Hyperlipidemia: Plan: Diet control. Not on lipid lowering agent at this time (6) Candidiasis of mouth and esophagus: Plan: Nystatin swish and swallow as needed (7) Acute metabolic encephalopathy: Plan: Supportive care. Treat hypercalcemia. Resolved Plan: Anticipate probable discharge to home tomorrowNovember 03 Admission and Anticipated Discharge Date Admission Date: November 01, 2021 Subjective Alert and feeling better. Potassium remains low and oral and parenteral potassium ordered. Hypercalcemia is improving. We will continue treatment today and hopefully she will be ready for discharge tomorrow, November 03 Review of Systems Review of Systems: Constitutional-no fever or chills ENT-no blurred vision, no double vision, no epistaxis, no sore throat Respiratory-no cough, no wheezing, no shortness of breath Cardiac-no palpitations, no chest pain, no syncope GI-no nausea, vomiting, diarrhea, melena, hematochezia -no urinary retention, no urinary incontinence, no dysuria, no hematuria Musculoskeletal-no joint pain, no muscle tenderness Skin-no bruising, no rashes, no pruritus Neuro-no isolated weakness, no paresthesia. Generalized weakness Psych-no depression, no anxiety Physical Exam Physical Exam: General-alert and oriented x3, no fevers, no chills HEENT-head atraumatic and normocephalic, TMs intact bilaterally, pupils equal a nd reactive to light, extraocular muscles intact Neck-no lymphadenopathy or thyromegaly, trachea midline Chest-clear to auscultation percussion. No rales wheezing or rhonchi Cardiac-regular rate and rhythm, normal S1 and S2, no murmurs Abdomen-normal bowel sounds, nontender, no hepatosplenomegaly Extremities-no cyanosis, clubbing, or edema Neuro-cranial nerves II through XII intact, motor and sensory function within normal limits, strength symmetrical , no focal deficits Psych-normal affect, normal mood Results & Data Results & Data ([facility]) Vital Signs (Past 12 Hours) Vital Signs Temp Pulse Pulse Pulse Resp BP BP 11/02/21 11:46 36.5 C 89 16 102/69 11/02/21 07:56 36.6 C 79 18 121/71 11/02/21 07:16 69 11/02/21 03:52 36.4 C L 75 20 119/61 Pulse Ox 11/02/21 11:46 98 11/02/21 07:56 94 11/02/21 07:16 11/02/21 03:52 94 Laboratory Results 11/02/21 06:52 11/02/21 06:52 PG Care Time/CCT Total # of Minutes Spent Total Time Spent with Patient: Total time spent is greater than 50% in coordination of care (as documented) at patient's floor/unit and/or counseling patient: Coding Level of Care Code 79906 Subseq Hosp Care Lvl 3 Diagnoses Hypercalcemia E83.52 Liver tumor D49.0 Carcinoma of Bartholin's gland C51.0 Squamous cell carcinoma of vulva C51.9 Hyperlipidemia E78.5 Candidiasis of mouth and esophagus B37.81; B37.0 Acute metabolic encephalopathy G93.41
[2021-11-02] MEDS: D5NSS + 20MEQ KCL 20 MEQ/1,000 ML BAG IV SCH (14:17)
[2021-11-02] MEDS: NYSTATIN SUSP 500,000 U/5 ML UDC PO SCH ×2 (17:53→21:01)
[2021-11-02] MEDS: ENOXAPARIN INJ 40 MG/0.4 ML SYR SQ SCH (17:56)
[2021-11-02] MEDS ORDERED: ZOLPIDEM TARTRATE 5 MG TAB PO SCH (21:00)
[2021-11-02] MEDS: POTASSIUM CHLORIDE CRTAB 20 MEQ TABCR PO SCH (21:01)
[2021-11-03] MEDS: D5NSS + 20MEQ KCL 20 MEQ/1,000 ML BAG IV SCH ×2 (00:01→09:50)
[2021-11-03] MEDS: CALCITONIN SALMON 200 UNITS in SYRINGE 0 ML SQ SCH (05:49)
[2021-11-03 07:34] LABS: Basophils # (auto) 0.01 K/uL (0-0.2); Basophils % (auto) 0.1 %; Eosinophils # (auto) 0.01 K/uL (0-0.5); Eosinophils % (auto) 0.1 %; Hematocrit (blood only) 29.1 % (37-47); Hemoglobin 9.6 g/dL (12.0-16.0); Immature Granulocytes # (auto) 0.02 K/uL (0.00-0.02); Immature Granulocytes % (auto) 0.2 %; Lymphocytes # (auto) 0.61 K/uL (1.2-3.4); Lymphocytes % (auto) 6.4 %; Mean Corpuscular Hemoglobin 29.7 pg (25-34); Mean Corpuscular Volume 90.1 fL (80-100); Mean Platelet Volume 9.5 fL (7.4-10.4); Monocytes # (auto) 0.28 K/uL (0.11-0.59); Monocytes % (auto) 2.9 %; Neutrophils # (auto) 8.61 K/uL (1.4-6.5); Neutrophils % (auto) 90.3 %; Platelet Count 282 K/uL (130-400); RDW Coefficient of Variation 13.4 % (11.5-14.5); RDW Standard Deviation 44.4 fL (36.4-46.3); Red Blood Count 3.23 M/uL (4.2-5.4); White Blood Count 9.54 K/uL (4.8-10.8)
[2021-11-03 07:41] VITALS: TEMP 98.4
[2021-11-03 08:24] LABS: BUN Creatinine Ratio 20.3 (10-20); Calcium 11.3 mg/dl (8.5-10.1); Creatinine Clr Calc Pharmacy 80.9 ml/min; Est GFR (African American) 111.6 ml/min; Est GFR (Non-African American) 96.3 ml/min; Magnesium 1.6 mg/dl (1.7-2.4); Potassium 2.7 mmol/L (3.5-5.1)
[2021-11-03] MEDS: busPIRone 15 MG TAB PO SCH (08:25)
[2021-11-03] MEDS: NYSTATIN SUSP 500,000 U/5 ML UDC PO SCH (08:25)
[2021-11-03] MEDS: POTASSIUM CHLORIDE CRTAB 20 MEQ TABCR PO SCH (08:26)
[2021-11-03] MEDS ORDERED: POTASSIUM CHLORIDE CRTAB 20 MEQ TABCR PO SCH (10:00)
[2021-11-03 11:38] VITALS: PULSE 77; O2SAT 98
--- NOTE | 2021-11-03 12:21 | Discharge Summary ---
Date of Service November 03, 2021 Admission HPI Per Admitting Provider 61 YOF with past medical history of: Squamous cell carinoma of Bartholin's glands, associated with inguinal and iliac adenopathy (beam radiation and Cisplatin- completed 2019. During follow up she was noted to have liver mass and underwent radio-embolic particles injection- she had follow up screening performed in 08-03, which revealed another hepatic mass and is scheduled to have chemotherapy this week 11/04/21. She follows with [facility] soren. She comes to the emergency room today for complaints of dizziness, increase fatigue, and decrease in overall strength. In the EMD she had routine labs drawn, CXR, ECG, CT of head and CTA of the head and neck performed. Imaging modalities negative for acute intracranial process, but laboratory workup came back with severe hypercalcemia to 16.9 with ionized calcium of 1.95. Her Potassium was also noted to be low and was replaced orally. She was started on 0.9% saline infusion at 125ml/hour and Hospitalist service was consulted for admission. Overall the patient has few systemic symptoms and is genally briskly awake and conversant but has endorsed polyuria and being more thirsty as well. Patient will be admitted to the PCU with neuro exams and monitor her levels over the next 24 hours. She will receive Calcitonin 4units/kg sq q12 and ZDA 4mg IV x1 and continue with Normosol infusion @175ml/hr. Continue workup with PTH, Phos, and PTH-RP if needed. She was recently started on amoxicillin from urgent care for concern of EENT infection with her dizziness. Principal Diagnosis Hypercalcemia, hypokalema Discharge Exam normal except generalized weakness Discharge Data Allergies Allergy/AdvReac Type Severity Reaction Status Date / Time Nnwpztz-LSO-NvU Reductase AdvReac LEG CRAMPS Verified 06/25/21 10:34 Inhibitor [Rgzkdva-Ohw-Ssz Reductase Inhibitor] Ordered Studies 11/01/21 11:06 CT angio head w con Stat CT angio neck with con Stat CT head/brain wo con Stat Hospital Course (1) Hypercalcemia: Acute mild/severe Hypercalcemia- iCA 1.95 (mild), serum CA 16 (severe) on admission. Improving with current treatment plan and IV fluids. Likely due to malignancy. PTH level is suppressed. Continue treatment with Calcitonin and IV fluids. She has received Zoledronic Acid. Serial lab studies (2) Liver tumor: Liver tumor x2- unsure of makeup of these - She had undergone radiation embolization x1 - With new tumor at ? right lobe of liver noted 08/07- she is to start chemotherapy this . CT scan: 08/03 On noncontrast images, there is heterogeneous attenuation of the liver parenchyma with low-attenuation lesions present. Following contrast administration, there are at least 7 retrogenesis and ring-enhancing lesions present throughout the right lobe of the liver. They have increased in size and number since the previous examination with the largest lesion now measuring approximately 4.8 x 4.6 cm. All of the other lesions are also increased in size. Findings are characteristic of worsening metastatic liver disease. PET Scan 12/02- 1. Decreased size and metabolic activity of the large pelvic mass centered within the vulva and perineum along with decreased size and metabolic activity of the pathologic inguinal and iliac chain lymph nodes. 2. New hepatic metastasis with periaortic lymphatic metastasis. Findings compatible with mixed treatment response. 3. No evidence of thoracic metastatic disease. 4. Additional findings as above. (3) Carcinoma of Bartholin's gland: completed beam radiation and chemo. Follows with [facility] in [place] (4) Squamous cell carcinoma of vulva: As above (5) Hyperlipidemia: Diet control. Not on lipid lowering agent at this time (6) Candidiasis of mouth and esophagus: Nystatin swish and swallow as needed (7) Acute metabolic encephalopathy: Supportive care. Treat hypercalcemia. Resolved discharge to home todayNovember 03 Total Time Total Time Spent Total Time Spent (In Minutes): 35 minutes Discharge Plan Discharge Items Patient Disposition: Home - Self-Care Reason For Visit: DIZZINESS, FATIGUE, SEVERE HYPERCALCEMIA Discharge Diagnosis: Hypercalcemia, hypokalemia Activity: Resume your previous activity Non-emergency contact: Primary Care Provider Call non-emergency contact if: you have any medication questions Follow-up/Referrals: Samuel Prasad DO [Primary Care Provider] - Diet: Heart Healthy Addtl Attending Provider Instructions: potassium and calcium levels should be checked in 1 week Pending Studies at Discharge: No Stand-Alone Forms: My [facility], Smoking Cessation Medications and DC Order Prescriptions: New potassium chloride 20 mEq tablet,ER particles/crystals 20 meq PO BID Qty: 30 RF: 0 Continued buspirone 15 mg tablet 15 mg PO BID Qty: 60 RF: 2 multivitamin [Multiple Vitamins] tablet 1 tab PO DAILY Qty: 90 RF: 3 amoxicillin-pot clavulanate 875-125 mg tablet 1 tab PO BID RF: 0 Discharge Orders: Discharge Order (Routine); Ordered 11/03/21 Ordered By: Lukas Hooker Admission Data Admit Date/Time: 11/01/21 13:58 Attending Provider: Lukas Hooker Admit Provider: Brandon Croft Primary Care Provider: Samuel Prasad Coding Level of Care Code D/C DAY MANAGEMENT >30 MINS Diagnoses Hypercalcemia E83.52 Liver tumor D49.0 Carcinoma of Bartholin's gland C51.0 Squamous cell carcinoma of vulva C51.9 Hyperlipidemia E78.5 Candidiasis of mouth and esophagus B37.81; B37.0 Acute metabolic encephalopathy G93.41
[2021-11-03 12:39] VITALS: BP 102/69
== END 2021-11-03 14:01 | disposition home or self-care (01) | DRG 640 ==
LOC: ED 09:58 → 2E 13:58 → SUATTDRO 13:58 → 2E 16:02

== ENCOUNTER 2022-01-13 21:23 | Inpatient (IN) ==
[2022-01-13] MEDS ORDERED: SODIUM CHLORIDE 0.9% 1000ML 1,000 ML IV ONE (21:40)
--- NOTE | 2022-01-13 21:46 | Emergency Department Note ---
Impression & Plan Hypercalcemia ED Provider Note Name: JOHN WOLF Age: 62 Sex: F Arrives Via: Walk-In Informant: Patient, ED Provider: Linwood Vega MD Chief Complaint: Weakness Impression: As per impressions above Medical Decision Making: Pleasant 62-year-old female with known history of vulvar cancer and metastasis to the right thigh previously treated as well as new metastasis to the liver. She is awaiting restart of either chemo or radiation. She arrives with worsening weakness over the last few days. Mild confusion, lack of appetite and fatigue. On examination she is alert and oriented with a GCS of 15 but does appear quite exhausted and dehydrated on evaluation. Vital signs show mild tachycardia. Generated had outpatient work-up which revealed significant hypercalcemia. This is actually a second episode this is happened about 3 months ago she had an episode of severe hypercalcemia resulting in hospitalization at that time as well. He was felt this may be due to metastasis though she reports no known bony metastasis at this time having reportedly just had a full PET scan though I do not have records at this time. I confirmed laboratory findings of hypercalcemia. Her PTH is normal. Her other laboratory findings are unremarkable other than some other electrolytes such as phosphorus being low as well as her alk phos is somewhat elevated consistent with her known cancer. Discussed case with the hospitalist to evaluate her further manage her with further medications. She did receive IV fluids by me Prior Medical Record and Triage/Nursing Notes reviewed by Me Additional history obtained from she does appear more improved with IV fluids though is now agreeable to hospitalization Differentials:Infection, dehydration, metabolic abnormality, hypo/hyperglycemia, electrolyte disturbance, anemia, hypoxia, cardiac sources, intracerebral event, toxicologic, neurologic, as well as other pathologies. Vital Signs: reviewed and remarkable for tachycardia Interventions: Normal saline bolus Labs:Reviewed and remarkable for hypercalcemia, hypophosphatemia, EKG:Per My Interpretation: Indication weakness: Sinus Tach 104 bpm, qtc 515. No Ectopy. There are inf/lat ST depressions though poor baseline as well. Compared to EKG 11/01/[address] Depressions new Plan: Disposition:Hospitalization. Condition: Good History of Present Illness: 62-year-old female arrives for evaluation of weakness. Patient is currently dealing with vulvar cancer with some mets to the liver determination on whether to start chemo or radiation. She notes she was increasingly weak over the last few days and thus was seen by PCP who ordered some labs. Labs reveal elevated calcium levels. She has a history of this happening about 3 months ago during which she was hospitalized for hypercalcemia at that time. The thought is that is due to her cancer though she reports PET scanning reveals no other lesions besides the liver issue. She notes she has no energy, is feeling very weak and has no appetite. She does not have mental status change and is still alert and oriented without difficulty thinking. She has had no recent fevers, chills, runny nose, cough, congestion, shortness of breath, headache, neck pain, abdominal pain, back pain or other signs or symptoms. She states she has been urinating okay and having normal bowel movements. She has no recent leg swelling or calf pain. She has had no recent falls, trauma, injuries. No recent infections or cold-like symptoms in the last few weeks. She has had no recent change to her medications. She is currently on a potassium supplement but is on no other medications. She denies any history of thyroid or parathyroid issues. No medications prior to arrival. Exertion makes worse and rest makes better. ROS: See above HPI for pertinent positives & negatives. A total of 10 systems reviewed and were otherwise negative. Past Medical History:See Below Past Surgical History:See Below Family History:See Below Social History:See Below Home Medications:See Below Allergies:statins Vitals:Blood Pressure: 137/73, Pulse 115, RR 16, T 36.6C, O2 99% on RA Physical Exam: GENERAL: Patient is cachectic/exhausted appearing and in minimal distress. Dehydrated EYES: No scleral icterus, unremarkable pupils. ENT: Mucous membranes dry, no nasal congestion. NECK: No masses appreciated, nomeningismus, trachea is midline. RESPIRATORY: No dyspnea. Clear to auscultation and equal bilaterally. No wheeze, no rhonchi. CARDIOVASCULAR: Tachy.No murmurs, rubs, gallops appreciated. GASTROINTESTINAL: Abdomen soft, non-tender, no peritonitis.Bowel sounds positive.No masses appreciated. BACK: No midline tenderness, no CVA tenderness EXTREMITIES: Normal motion all extremities, no cyanosis, no edema. NEUROLOGIC: Alert and oriented, no acute motor or sensory deficits, no focal weakness, cranial nerves grossly intact. SKIN: No rash, no jaundice, no diaphoresis. PSYCH: Appropriate GCS: 15 ED Course: Times/Reassessments: Patient does appear much improved with IV fluids and heart rate has come down. She is agreeable to hospitalization for further management of her severe hypercalcemia. Linwood Vega MD Past Med/Surg History Medical History Anxiety High blood pressure "at times will be elevated" History of COVID-2019 -> mild symptoms. History of recent hospitalization treated inpatient [facility] for hypercalcemia and hypokalemia and following with pcp. Hx of skin cancer, basal cell NOSE Hyperlipidemia Internal hemorrhoids Metastases to the liver treated with radiation ~October 2021 Vulvar cancer "thigh/pelvic region" treated with chemotherapy and radiation. Surgical History Family history of reaction to anesthesia MOTHER-COULD FEEL EVERYTHING DURING PAST COLONOSCOPY History of colonoscopy History of tooth extraction Family History Mother No problems noted. Father Myocardial infarction Sister Endometrial cancer Son delivery Son No problems noted. Daughter No problems noted. Social History Smoking Status: Former smoker Tobacco Type: Cigarettes Cigarettes Per Day: 1 P Q 2 days x 30 yrs; Number of Years Since Quit: 2; Second Hand Exposure: No; Hx Alcohol Use: No Hx Substance Use: No Preferred Language: Ukrainian Communication Ability: Effective Visual Impairment: No Limitations Hearing Ability: Normal Replanting Machine Crew Required: No Beliefs That Will Affect Care: None marital status: Current Living Situation: Spouse Current Living Situation Comment: SPOUSE AND SON current occupational status: employed current occupation: [employer] retick[employer] Feels Safe at Home: Yes Childhood Exposure to Second-Hand Smoke: No caffeine: Yes (coffee, tea ) during the past year weight has: remained stable Dental Care, Regularly: Yes Physical Activity Frequency: Daily Seatbelt Use: always Sunscreen Use: Yes Assistive Devices: None Allergies Allergies Allergy/AdvReac Type Severity Reaction Status Date / Time Jmtfegu-MVT-GhB Reductase AdvReac Intermediate LEG CRAMPS Verified 01/13/22 14:01 Inhibitor [Fpjknst-Qrl-Lfk Reductase Inhibitor] Home Meds Home Medications Medication Instructions Recorded Confirmed potassium chloride 10 mEq 10 meq PO QAM 01/03/22 01/13/22 tablet,extended release (Klor-Con) Previous Rx's Medication Instructions Recorded buspirone 15 mg tablet 15 mg PO BID #60 tab 11/29/21 Results & Data (ED) Vital Signs Vital Signs - 24 hr 01/13/22 21:26 Temperature 36.6 C Temperature Source Temporal Artery Scan Pulse Rate 115 H Respiratory Rate 16 Blood Pressure 137/73 Blood Pressure Mean 94 Pulse Oximetry 99 Oxygen Delivery Method Room Air Sepsis Recent Fever Within 48 Hours No Sepsis New/Unexplained Change in Mental Status N/A Sepsis Action Taken by Nursing No Action Required Laboratory Data Result diagrams: 01/14/22 08:21 01/14/22 08:21 Lab Results 01/13/22 01/13/22 01/13/22 Range/Units 21:52 21:52 21:52 WBC 10.09 (4.8-10.8) K/uL RBC 4.10 L (4.2-5.4) M/uL Hgb 10.6 L (12.0-16.0) g/dL Hct 34.3 L (37-47) % MCV 83.7 (80-100) fL MCH 25.9 (25-34) pg MCHC 30.9 L (32-36) g/dL RDW Std Deviation 50.4 H (36.4-46.3) fL RDW Coeff of Joanne 16.5 H (11.5-14.5) % Plt Count 379 (130-400) K/uL MPV 9.6 (7.4-10.4) fL Immature Gran % (Auto) 0.2 % Neut % (Auto) 86.6 % Lymph % (Auto) 7.7 % [place] % (Auto) 5.0 % Eos % (Auto) 0.3 % Baso % (Auto) 0.2 % Neut # (Auto) 8.74 H (1.4-6.5) K/uL Lymph # (Auto) 0.78 L (1.2-3.4) K/uL [place] # (Auto) 0.50 (0.11-0.59) K/uL Eos # (Auto) 0.03 (0-0.5) K/uL Baso # (Auto) 0.02 (0-0.2) K/uL Immature Gran # (Auto) 0.02 (0.00-0.02) K/uL Sodium 135 L (136-145) mmol/L Potassium 2.8 L D (3.5-5.1) mmol/L Chloride 97 L (98-107) mmol/L Carbon Dioxide 28 (21-32) mmol/L Anion Gap 10 (3-11) BUN 14 (6-23) mg/dl Creatinine 0.64 (0.6-1.2) mg/dl Est Cr Clr Drug Dosing 67.9 ml/min Est GFR ( Amer) 110.8 ml/min Est GFR (Non-Af Amer) 95.6 ml/min BUN/Creatinine Ratio 21.9 H (10-20) Glucose 96 (70-99(Fasting)) mg/dl Calcium 16.7 H* (8.5-10.1) mg/dl Ionized Calcium (1.12-1.32) mmol/L Phosphorus 1.5 L* (2.5-4.9) mg/dl Magnesium 1.8 (1.7-2.4) mg/dl Total Bilirubin 0.5 (0.2-1.0) mg/dl Direct Bilirubin 0.1 (0-0.2) mg/dl AST 33 (13-39) U/L ALT 20 (7-52) U/L Alkaline Phosphatase 274 H (34-104) U/L Total Creatine Kinase 35 (26-192) U/L Troponin I High Sens 4.4 (0-14) pg/ml Total Protein 7.6 (6.0-8.3) gm/dl Albumin 3.8 (3.4-5.0) gm/dl TSH 2.155 (0.300-4.500) uIu/ml PTH Intact (12.0-88.0) pg/ml 01/13/22 01/13/22 Range/Units 21:52 22:32 WBC (4.8-10.8) K/uL RBC (4.2-5.4) M/uL Hgb (12.0-16.0) g/dL Hct (37-47) % MCV (80-100) fL MCH (25-34) pg MCHC (32-36) g/dL RDW Std Deviation (36.4-46.3) fL RDW Coeff of Joanne (11.5-14.5) % Plt Count (130-400) K/uL MPV (7.4-10.4) fL Immature Gran % (Auto) % Neut % (Auto) % Lymph % (Auto) % [place] % (Auto) % Eos % (Auto) % Baso % (Auto) % Neut # (Auto) (1.4-6.5) K/uL Lymph # (Auto) (1.2-3.4) K/uL [place] # (Auto) (0.11-0.59) K/uL Eos # (Auto) (0-0.5) K/uL Baso # (Auto) (0-0.2) K/uL Immature Gran # (Auto) (0.00-0.02) K/uL Sodium (136-145) mmol/L Potassium (3.5-5.1) mmol/L Chloride (98-107) mmol/L Carbon Dioxide (21-32) mmol/L Anion Gap (3-11) BUN (6-23) mg/dl Creatinine (0.6-1.2) mg/dl Est Cr Clr Drug Dosing ml/min Est GFR ( Amer) ml/min Est GFR (Non-Af Amer) ml/min BUN/Creatinine Ratio (10-20) Glucose (70-99(Fasting)) mg/dl Calcium (8.5-10.1) mg/dl Ionized Calcium 1.90 H* (1.12-1.32) mmol/L Phosphorus (2.5-4.9) mg/dl Magnesium (1.7-2.4) mg/dl Total Bilirubin (0.2-1.0) mg/dl Direct Bilirubin (0-0.2) mg/dl AST (13-39) U/L ALT (7-52) U/L Alkaline Phosphatase (34-104) U/L Total Creatine Kinase (26-192) U/L Troponin I High Sens (0-14) pg/ml Total Protein (6.0-8.3) gm/dl Albumin (3.4-5.0) gm/dl TSH (0.300-4.500) uIu/ml PTH Intact 12.1 (12.0-88.0) pg/ml Administered Medications Buspirone HCl (Buspirone 15 Mg Tab) 15 mg PO BID JUNITO Stop: 02/13/22 08:59 Last Admin: 01/14/22 08:53 Dose: 15 mg Documented by: [id number] Enoxaparin Sodium (Enoxaparin Inj 40 Mg/0.4 Ml Syr) 40 mg SQ Q24H JUNITO Stop: 02/13/22 08:59 Last Admin: 01/14/22 08:53 Dose: Not Given Documented by: [id number] Sodium Chloride (Nss 1000ml) 1,000 mls @ 125 mls/hr IV .Q8H JUNITO Stop: 01/15/22 04:26 Last Admin: 01/14/22 14:00 Dose: 125 mls/hr Documented by: [id number] Infusion: 01/14/22 13:13 Dose: 125 mls/hr Documented by: [id number] Infusion: 01/14/22 10:48 Dose: 125 mls/hr Documented by: [id number] Admin: 01/14/22 03:49 Dose: 100 mls/hr Documented by: [id number] Calcitonin Emeigh 200 units/ (Syringe) 1 mls @ 1 mls/sec SQ BID JUNITO Stop: 02/13/22 03:44 Last Admin: 01/14/22 08:53 Dose: 1 mls/sec Documented by: [id number] Admin: 01/14/22 03:49 Dose: 1 mls/sec Documented by: [id number] Potassium Chloride (Potassium Chloride 10 Meq Tabcr) 10 meq PO QAM JUNITO Stop: 02/13/22 08:59 Last Admin: 01/14/22 08:53 Dose: 10 meq Documented by: [id number] Discontinued Medications Sodium Chloride (Nss 1000ml) 1,000 mls @ 999 mls/hr IV .Q1H1M ONE Stop: 01/13/22 22:40 Last Infusion: 01/14/22 00:12 Dose: 0 mls/hr Documented by: [id number] Admin: 01/13/22 21:52 Dose: 999 mls/hr Documented by: [id number] Zoledronic Acid 4 mg/ Sodium (Chloride) 105 mls @ 210 mls/hr IV ONE ONE Stop: 01/14/22 03:59 Last Infusion: 01/14/22 04:20 Dose: 0 mls/hr Documented by: [id number] Admin: 01/14/22 03:48 Dose: 210 mls/hr Documented by: [id number] Magnesium Sulfate/Dextrose (Magnesium Sulfate / D5w) 1 gm in 100 mls @ 50 mls/hr IV ONE ONE Stop: 01/14/22 10:35 Last Infusion: 01/14/22 10:48 Dose: 0 mls/hr Documented by: [id number] Admin: 01/14/22 08:56 Dose: 50 mls/hr Documented by: [id number] Potassium Phosphate 15 mmol/ (Sodium Chloride) 255 mls @ 88 mls/hr IV ONE ONE Stop: 01/14/22 11:53 Last Infusion: 01/14/22 13:51 Dose: 0 mls/hr Documented by: [id number] Admin: 01/14/22 09:33 Dose: 88 mls/hr Documented by: [id number] Iron Sucrose 200 mg/ Sodium (Chloride) 110 mls @ 220 mls/hr IV TODAY@1400 ONE Stop: 01/14/22 14:29 Last Admin: 01/14/22 14:35 Dose: 220 mls/hr Documented by: [id number] Potassium Chloride (Potassium Chloride Crtab 20 Meq Tabcr) 60 meq PO NOW STA Stop: 01/13/22 23:45 Last Admin: 01/14/22 00:11 Dose: 60 meq Documented by: [id number] Discharge Plan Visit Data Chief Complaint: Abnormal Labs/Diagnostic Testing Stated Complaint: CALCIUM LEVELS HIGH ED Provider: Linwood Vega Discharge Problem: Hypercalcemia Patient Disposition: Admitted As Inpatient Discharge Instructions Interventions: ED Discharge Assessment Last Done: 01/14/22 03:01
[2022-01-13 22:14] LABS: Basophils # (auto) 0.02 K/uL (0-0.2); Basophils % (auto) 0.2 %; Eosinophils # (auto) 0.03 K/uL (0-0.5); Eosinophils % (auto) 0.3 %; Hematocrit (blood only) 34.3 % (37-47); Hemoglobin 10.6 g/dL (12.0-16.0); Immature Granulocytes # (auto) 0.02 K/uL (0.00-0.02); Immature Granulocytes % (auto) 0.2 %; Lymphocytes # (auto) 0.78 K/uL (1.2-3.4); Lymphocytes % (auto) 7.7 %; Mean Corpuscular Hemoglobin 25.9 pg (25-34); Mean Corpuscular Hgb Conc 30.9 g/dL (32-36); Mean Corpuscular Volume 83.7 fL (80-100); Mean Platelet Volume 9.6 fL (7.4-10.4); Neutrophils # (auto) 8.74 K/uL (1.4-6.5); Neutrophils % (auto) 86.6 %; Platelet Count 379 K/uL (130-400); RDW Coefficient of Variation 16.5 % (11.5-14.5); RDW Standard Deviation 50.4 fL (36.4-46.3); White Blood Count 10.09 K/uL (4.8-10.8)
[2022-01-13 22:42] LABS: Albumin Level 3.8 gm/dl (3.4-5.0); BUN Creatinine Ratio 21.9 (10-20); Bilirubin Direct 0.1 mg/dl (0-0.2); Bilirubin,Total 0.5 mg/dl (0.2-1.0); Calcium 16.7 mg/dl (8.5-10.1); Creatinine Clr Calc Pharmacy 67.9 ml/min; Est GFR (African American) 110.8 ml/min; Est GFR (Non-African American) 95.6 ml/min; Magnesium 1.8 mg/dl (1.7-2.4); Phosphorus 1.5 mg/dl (2.5-4.9); Potassium 2.8 mmol/L (3.5-5.1); Total Protein 7.6 gm/dl (6.0-8.3); Troponin I High Sensitivity 4.4 pg/ml (0-14)
[2022-01-13] MEDS ORDERED: POTASSIUM CHLORIDE CRTAB 20 MEQ TABCR PO STA (23:44)
--- NOTE | 2022-01-14 | History & Physical Report ---
Date of Service January 13, 2022 Assessment & Plan (1) Hypercalcemia: Plan: Patient with severe hypercalcemia - Ca=16.7, ICal=1.9. She was admitted with similar presentation in October 2021. Workup at that time suggestive for malignancy induced hypercalcemia. Patient mildly symptomatic with fatigue and confusion. -Admit to medical -Continue IVF - NSS at 100mL/hr x 2 liters -Calcitonin 0.4mg SQ BID -Zolendronic acid 4mg IV x 1 -Repeat ICal in AM (2) Anxiety: Plan: Chronic. Fairly well controlled on medications. Some situational anxiety given need for hospitalization. -Continue Buspirone 15mg po BID (3) Liver tumor: Plan: Patient with metastatic liver lesion. She follows with Dr. Hartman from [facility] and is due to see her 01/18/22 to discuss further treatment of liver lesions. (4) Hypokalemia: Plan: K=2.8, history of hypokalemia on daily KCl -60mEq now -Repeat chemistry in AM Plan: F/E/N - NSS at 100mL/hr x 2 liters, K, Ca management as above, regular diet as tolerated Ppx - Lovenox Code - Full as discussed with patient Dispo - Admit to medical History of Present Illness Chief Complaint: fatigue, weakness Primary Care Provider: Samuel Prasad DO Vilma Olvera is a 62yo female with history of HTN, HLP, Anxiety. 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 Patient now with metastatic disease to the liver (biopsy proven 02/10/21). She follows with Dr. Carey Hartman from Gynecologic/Oncology. Patient was admitted to [facility] 11/01/21 - 11/03/21 with severe hypercalcemia with Ca of 16. She had a low PTH and elevated PTHrP during that visit. Hypercalcemia thought to be secondary to humoral response of malignancy. She was treated with IVF, SC Calcitonin as well as IV Zalendronic acid with improvement in calcium. Patient returns today with 2-3 days of fatigue. She feels decreased exercise tolerance. at bedside reports some very minor confusion. No additional complaints at this time. Patient was seen by her PCP earlier today and had blood work collected. She was called to come to the ER tonight secondary to hypercalcemia. No additional complaints at this time. Patient denies fever, chills, cough, SOB, abdominal pain, nausea, vomiting, diarrhea or constipation. She does report some early satiety as well as ongoing weight loss - reports losing appx 30# in the last 8 months. ER Course: NSS x 1 L Allergies Allergy/AdvReac Type Severity Reaction Status Date / Time Uxfvrwh-UYB-PnV Reductase AdvReac Intermediate LEG CRAMPS Verified 01/13/22 14:01 Inhibitor [Bicziwu-Tqw-Tzv Reductase Inhibitor] Home Medications Medication Instructions Recorded Confirmed Type buspirone 15 mg tablet 15 mg PO BID #60 tab 11/29/21 01/13/22 Rx potassium chloride 10 mEq 10 meq PO QAM 01/03/22 01/13/22 History tablet,extended release (Klor-Con) Past Med/Surg History Medical History Anxiety High blood pressure "at times will be elevated" History of COVID-2019 -> mild symptoms. History of recent hospitalization treated inpatient [facility] for hypercalcemia and hypokalemia and following with pcp. Hx of skin cancer, basal cell NOSE Hyperlipidemia Internal hemorrhoids Metastases to the liver treated with radiation ~October 2021 Vulvar cancer "thigh/pelvic region" treated with chemotherapy and radiation. Surgical History Family history of reaction to anesthesia MOTHER-COULD FEEL EVERYTHING DURING PAST COLONOSCOPY History of colonoscopy History of tooth extraction Family History Mother No problems noted. Father Myocardial infarction Sister Endometrial cancer Son delivery Son No problems noted. Daughter No problems noted. Social History Smoking Status: Never smoker Tobacco Type: Cigarettes Cigarettes Per Day: 1 P Q 2 days x 30 yrs; Number of Years Since Quit: 2; Second Hand Exposure: No; Hx Alcohol Use: Yes Alcohol type: beer Hx Substance Use: No Preferred Language: Syrian Communication Ability: Effective Visual Impairment: No Limitations Hearing Ability: Normal Medical Reviewer Required: No Beliefs That Will Affect Care: None marital status: Current Living Situation: Spouse Current Living Situation Comment: SPOUSE AND SON current occupational status: employed current occupation: [employer] Feels Safe at Home: Yes Childhood Exposure to Second-Hand Smoke: No caffeine: Yes (coffee, tea ) during the past year weight has: remained stable Dental Care, Regularly: Yes Physical Activity Frequency: Daily Seatbelt Use: always Sunscreen Use: Yes Assistive Devices: Glasses Review of Systems Review of Systems: All systems reviewed & are unremarkable except as noted in HPI & below Physical Exam Physical Exam: General: patient resting comfortably, NAD, non-toxic in appearance, AA&O x 4 Skin: warm, dry, intact, no rashes or lesions HEENT: NC/AT, PERRL, EOMI, anicteric sclera, conjunctiva without injection, external ear normal to inspection and nontender, nares patent, moist mucus membranes, dentition intact, no oropharyngeal lesions, neck supple, trachea midline, no LAD, no thyromegaly, no JVD Heart: +S1/S2, regular, no m/r/g Lungs: equal air entry bilaterally, no rales/rhonchi/wheezes Abd: +BS, soft, NT/ND, no masses/organomegaly/ascites Ext: warm, 2+ pulses in UE/LE bilaterally, no clubbing/cyanosis or edema Neuro: nonfocal, patient AA&O x 4, speech intact, no facial droop, moving all extremities on command with equal strength 5/5 Results & Data Results & Data ([facility]) Vital Signs (Past 12 Hours) Vital Signs Temp Pulse Resp BP Pulse Ox 01/13/22 21:26 36.6 C 115 H 16 137/73 99 Laboratory Results Laboratory Results WBC 10.09 K/uL (4.8-10.8) 01/13/22 21:52 RBC 4.10 M/uL (4.2-5.4) L 01/13/22 21:52 Hgb 10.6 g/dL (12.0-16.0) L 01/13/22 21:52 Hct 34.3 % (37-47) L 01/13/22 21:52 MCV 83.7 fL (80-100) 01/13/22 21:52 MCH 25.9 pg (25-34) 01/13/22 21:52 MCHC 30.9 g/dL (32-36) L 01/13/22 21:52 RDW Std Deviation 50.4 fL (36.4-46.3) H 01/13/22 21:52 RDW Coeff of Joanne 16.5 % (11.5-14.5) H 01/13/22 21:52 Plt Count 379 K/uL (130-400) 01/13/22 21:52 MPV 9.6 fL (7.4-10.4) 01/13/22 21:52 Immature Gran % (Auto) 0.2 % 01/13/22 21:52 Neut % (Auto) 86.6 % 01/13/22 21:52 Lymph % (Auto) 7.7 % 01/13/22 21:52 Dickens % (Auto) 5.0 % 01/13/22 21:52 Eos % (Auto) 0.3 % 01/13/22 21:52 Baso % (Auto) 0.2 % 01/13/22 21:52 Neut # (Auto) 8.74 K/uL (1.4-6.5) H 01/13/22 21:52 Lymph # (Auto) 0.78 K/uL (1.2-3.4) L 01/13/22 21:52 Dickens # (Auto) 0.50 K/uL (0.11-0.59) 01/13/22 21:52 Eos # (Auto) 0.03 K/uL (0-0.5) 01/13/22 21:52 Baso # (Auto) 0.02 K/uL (0-0.2) 01/13/22 21:52 Immature Gran # (Auto) 0.02 K/uL (0.00-0.02) 01/13/22 21:52 Sodium 135 mmol/L (136-145) L 01/13/22 21:52 Potassium 2.8 mmol/L (3.5-5.1) L D 01/13/22 21:52 Chloride 97 mmol/L (98-107) L 01/13/22 21:52 Carbon Dioxide 28 mmol/L (21-32) 01/13/22 21:52 Anion Gap 10 (3-11) 01/13/22 21:52 BUN 14 mg/dl (6-23) 01/13/22 21:52 Creatinine 0.64 mg/dl (0.6-1.2) 01/13/22 21:52 Est Cr Clr Drug Dosing 67.9 ml/min 01/13/22 21:52 Est GFR ( Amer) 110.8 ml/min 01/13/22 21:52 Est GFR (Non-Af Amer) 95.6 ml/min 01/13/22 21:52 BUN/Creatinine Ratio 21.9 (10-20) H 01/13/22 21:52 Glucose 96 mg/dl (70-99(Fasting)) 01/13/22 21:52 Calcium 16.7 mg/dl (8.5-10.1) H* 01/13/22 21:52 Ionized Calcium 1.90 mmol/L (1.12-1.32) H* 01/13/22 22:32 Phosphorus 1.5 mg/dl (2.5-4.9) L* 01/13/22 21:52 Magnesium 1.8 mg/dl (1.7-2.4) 01/13/22 21:52 Total Bilirubin 0.5 mg/dl (0.2-1.0) 01/13/22 21:52 Direct Bilirubin 0.1 mg/dl (0-0.2) 01/13/22 21:52 AST 33 U/L (13-39) 01/13/22 21:52 ALT 20 U/L (7-52) 01/13/22 21:52 Alkaline Phosphatase 274 U/L (34-104) H 01/13/22 21:52 Total Creatine Kinase 35 U/L (26-192) 01/13/22 21:52 Troponin I High Sens 4.4 pg/ml (0-14) 01/13/22 21:52 Total Protein 7.6 gm/dl (6.0-8.3) 01/13/22 21:52 Albumin 3.8 gm/dl (3.4-5.0) 01/13/22 21:52 TSH 2.155 uIu/ml (0.300-4.500) 01/13/22 21:52 PTH Intact 12.1 pg/ml (12.0-88.0) 01/13/22 21:52 Code Status & VTE Plan VTE Prophylaxis Plan VTE Prophylaxis will be ordered: Yes PG Care Time/CCT Total # of Minutes Spent Total Time Spent with Patient: Total time spent is greater than 50% in coordination of care (as documented) at patient's floor/unit and/or counseling patient: Coding Level of Care Code 60513 Initial Inpt Care Lvl 2 Diagnoses Anxiety F41.9 Hypercalcemia E83.52 Liver tumor D49.0 Hypokalemia E87.6
[2022-01-14] MEDS ORDERED: ACETAMINOPHEN 325 MG TAB PO PRN (03:01)
[2022-01-14] MEDS ORDERED: CALCITONIN SALMON 400 UNITS/2 ML SQ SCH (03:01)
[2022-01-14] MEDS ORDERED: ZOLEDRONIC ACID 4 MG in 0.9 % SODIUM CHLORIDE 100 ML IV ONE (03:30)
[2022-01-14] MEDS: CALCITONIN SALMON 200 UNITS in SYRINGE 0 ML SQ SCH ×3 (03:49→21:03)
[2022-01-14] MEDS: SODIUM CHLORIDE 0.9% 1000ML 1,000 ML IV SCH ×2 (03:49→14:00)
[2022-01-14] MEDS ORDERED: POTASSIUM PHOS 3 MMOL/1 ML INFUSION IV STA ×2 (08:36→18:19)
[2022-01-14] MEDS ORDERED: MAGNESIUM SULFATE / D5W 1 GM/100 ML BAG IV ONE (08:36)
--- NOTE | 2022-01-14 08:40 | Hospitalist Progress Note ---
Date of Service January 14, 2022 Assessment & Plan (1) Hypercalcemia: Plan: Patient with severe hypercalcemia - Ca=16.7, ICal=1.9. ALBUMIN NORMAL She was admitted with similar presentation in October 2021. ((History of SCC R bartholins s/p XRT and IV cisplatin in past)) Workup at that time suggestive for malignancy induced hypercalcemia. Patient mildly symptomatic with fatigue and confusion on exam * Reports she had imaging at [facility] and follows with Dr Hartman and Dr Hernández and they are to discuss options for chemotherapy on Monday this upcoming week given new lesions found on recent imaging * Patient reports she hasn't had chemo in approximately 2 years (last admit was reported to have chemo upcoming that week) IVF NSS @100cc/hr, increased to 125cc/hr and monitor (times for 3 bag currently) Ca 16.7, ionized 1.9 --> 14.9, 1.8 Phos 1.5--> 1.4, ordered dose K phos and monitor Vit D 25.1 --? oral supp, would avoid for now. PTH 12.1 (prior low PTH 9, elevated pth related protein) Continues calcitonin 200u BID (0.4mg dosing SQ BID)-- consider increasing to 400u (0.8mg) BID if needed Will repeat labs this afternoon/increase calcitonin later today if needed. Recived on dose zoledronic acid on 01/13/22 K 2.8--> 3.5 after 60meq PO Mag 1.8--> 1.7 and ordering 1gm IV as issues with constipation and prevent worsening hypomagnesemia given other electrolyte abnormalities No CP/SOB, but low threshold to move to monitored bed if any issues (trop 4.4 on admit w/ new high sensitivity) Reporting fatigue, likely from underlying malignancy given reports of new liver lesions Iron panel -- Iron 25, trans % 10 -- dose replacement ordered Construction Representative also consulted Patient hopeful for discharge today, but discussed need for continued inpatient monitoring Continue to monitor (2) Anxiety: Plan: Chronic. Fairly well controlled on medications. Some situational anxiety given need for hospitalization. Continue Buspirone 15mg po BID (3) Liver tumor: Plan: Patient with metastatic liver lesion. She follows with Dr. Hartman from [facility] and is due to see her 01/18/22 to discuss further treatment of liver lesions as last admit reports state was to get chemo that week but patient hasn't gotten in approximately 2 years per her account (4) Hypokalemia: Plan: K=2.8, history of hypokalemia on daily KCl --> 60meq provided and 3.5 on repeat Monitor afternoon labs/additional replacement if needed Plan: continued inpatient monitoring Admission and Anticipated Discharge Date Admission Date: January 13, 2022 Supervising Physician Co-Signing Physician Notes GARY Supervision Note: I did not personally see or examine the patient today, but I verified all goyal points of GARY Berrios's assessment and plan with the following exceptions/additions: None Subjective Patient evaluated this morning. Fatigued appearing but was hopeful for discharge. Discussed electrolytes still significantly abnormal and would like to increase IVF/check labs this afternoon. Will attempt to make adjustments to calcitonin if needed/give dose ZA if needed She states had not really been moving bowels since colonoscopy and she states they told her to take some Miralax to help. Discussed constipation associated with elevated calcium levels and likely no improvement with Miralax alone and needs to stay for further correction. She is disappointed but agreed. No CP/SOB but does report some muscle weakness to her chest. No headache but some brain fog noted. Imaging [facility] recently for her malignancy process. Patient states she hasn't gotten chemo in over two years but has new spot on liver and to talk with oncology Dr Gaytan/Dr Hernández (who does the treatment to the liver apparently) on Monday to see about what chemo/tx to use. She does endorse she has had unexplained weight loss over the past several months (30lb/8months). Review of Systems Review of Systems: All systems reviewed & are unremarkable except as noted in HPI & below Physical Exam Physical Exam: General: patient resting comfortably, NAD, non-toxic in appearance, fatigued appearing, ,alert/oriented to person/place/time but slow to respond/think of answers at time (issues with memory reported) HEENT: head normocephalic, atraumatic, pupils equal and reactive, mm slightly dry, trachea midline without deviation Resp: CTAB, no w/c/r, on RA CV: RRR, no m/r/g, no edema GI: +BS, distended, soft, nontender, no HSP noted ; no castro MSK/Neuro: slight weakness 4/5 with strength testing throughout, no focal deficit/slurred speech/facial droop. Answering questions appropriately/no asterixis Skin: warm, dry, no obvious lesions Results & Data Results & Data ([facility]) Vital Signs (Past 12 Hours) Vital Signs Temp Pulse Pulse Resp BP BP Pulse Ox 01/14/22 08:24 36.5 C 77 16 123/77 100 01/14/22 03:01 36.5 C 65 80 16 137/80 99 01/14/22 02:50 36.5 C 80 16 137/80 99 01/13/22 21:26 36.6 C 115 H 16 137/73 99 Laboratory Results 01/14/22 01/14/22 01/14/22 Range/Units 08:33 08:21 08:21 WBC (4.8-10.8) K/uL RBC (4.2-5.4) M/uL Hgb (12.0-16.0) g/dL Hct (37-47) % MCV (80-100) fL MCH (25-34) pg MCHC (32-36) g/dL RDW Std Deviation (36.4-46.3) fL RDW Coeff of Joanne (11.5-14.5) % Plt Count (130-400) K/uL MPV (7.4-10.4) fL Immature Gran % (Auto) % Neut % (Auto) % Lymph % (Auto) % Livingston % (Auto) % Eos % (Auto) % Baso % (Auto) % Neut # (Auto) (1.4-6.5) K/uL Lymph # (Auto) (1.2-3.4) K/uL Livingston # (Auto) (0.11-0.59) K/uL Eos # (Auto) (0-0.5) K/uL Baso # (Auto) (0-0.2) K/uL Immature Gran # (Auto) (0.00-0.02) K/uL Sodium (136-145) mmol/L Potassium (3.5-5.1) mmol/L Chloride (98-107) mmol/L Carbon Dioxide (21-32) mmol/L Anion Gap (3-11) BUN (6-23) mg/dl Creatinine (0.6-1.2) mg/dl Est Cr Clr Drug Dosing ml/min Est GFR ( Amer) ml/min Est GFR (Non-Af Amer) ml/min BUN/Creatinine Ratio (10-20) Glucose (70-99(Fasting)) mg/dl Calcium (8.5-10.1) mg/dl Ionized Calcium 1.80 H* (1.12-1.32) mmol/L Phosphorus 1.4 L* (2.5-4.9) mg/dl Magnesium 1.7 (1.7-2.4) mg/dl Iron 25 L (35-150) mcg/dl TIBC 241 L (250-450) mcg/dl Unsaturated IBC 216 (155-355) mcg/dl Transferrin % Sat 10 L (15-50) % Ferritin (8-388) ng/ml Total Bilirubin (0.2-1.0) mg/dl Direct Bilirubin (0-0.2) mg/dl AST (13-39) U/L ALT (7-52) U/L Alkaline Phosphatase (34-104) U/L Total Creatine Kinase (26-192) U/L Troponin I High Sens (0-14) pg/ml Total Protein (6.0-8.3) gm/dl Albumin (3.4-5.0) gm/dl Vitamin B12 1208 H (180-914) pg/ml 25-OH Vitamin D Total (30-100) ng/ml TSH (0.300-4.500) uIu/ml PTH Intact (12.0-88.0) pg/ml SARS-CoV-2, RNA, NAAT (NEGATIVE) 01/14/22 01/14/22 01/14/22 Range/Units 08:21 08:21 08:21 WBC 7.49 (4.8-10.8) K/uL RBC 4.23 (4.2-5.4) M/uL Hgb 10.6 L (12.0-16.0) g/dL Hct 35.4 L (37-47) % MCV 83.7 (80-100) fL MCH 25.1 (25-34) pg MCHC 29.9 L (32-36) g/dL RDW Std Deviation 50.1 H (36.4-46.3) fL RDW Coeff of Joanne 16.3 H (11.5-14.5) % Plt Count 337 (130-400) K/uL MPV 9.5 (7.4-10.4) fL Immature Gran % (Auto) 0.1 % Neut % (Auto) 88.8 % Lymph % (Auto) 6.3 % Livingston % (Auto) 4.4 % Eos % (Auto) 0.1 % Baso % (Auto) 0.3 % Neut # (Auto) 6.65 H (1.4-6.5) K/uL Lymph # (Auto) 0.47 L (1.2-3.4) K/uL Livingston # (Auto) 0.33 (0.11-0.59) K/uL Eos # (Auto) 0.01 (0-0.5) K/uL Baso # (Auto) 0.02 (0-0.2) K/uL Immature Gran # (Auto) 0.01 (0.00-0.02) K/uL Sodium 139 (136-145) mmol/L Potassium 3.5 D (3.5-5.1) mmol/L Chloride 107 (98-107) mmol/L Carbon Dioxide 24 (21-32) mmol/L Anion Gap 8 (3-11) BUN 10 (6-23) mg/dl Creatinine 0.49 L (0.6-1.2) mg/dl Est Cr Clr Drug Dosing 88.1 ml/min Est GFR ( Amer) 121.0 ml/min Est GFR (Non-Af Amer) 104.4 ml/min BUN/Creatinine Ratio 20.4 H (10-20) Glucose 96 (70-99(Fasting)) mg/dl Calcium 14.9 H* (8.5-10.1) mg/dl Ionized Calcium (1.12-1.32) mmol/L Phosphorus (2.5-4.9) mg/dl Magnesium (1.7-2.4) mg/dl Iron (35-150) mcg/dl TIBC (250-450) mcg/dl Unsaturated IBC (155-355) mcg/dl Transferrin % Sat (15-50) % Ferritin 346.7 (8-388) ng/ml Total Bilirubin 0.4 (0.2-1.0) mg/dl Direct Bilirubin 0.1 (0-0.2) mg/dl AST 29 (13-39) U/L ALT 19 (7-52) U/L Alkaline Phosphatase 255 H (34-104) U/L Total Creatine Kinase (26-192) U/L Troponin I High Sens (0-14) pg/ml Total Protein 7.0 (6.0-8.3) gm/dl Albumin 3.6 (3.4-5.0) gm/dl Vitamin B12 (180-914) pg/ml 25-OH Vitamin D Total 25.1 L (30-100) ng/ml TSH (0.300-4.500) uIu/ml PTH Intact (12.0-88.0) pg/ml SARS-CoV-2, RNA, NAAT (NEGATIVE) 01/13/22 01/13/22 01/13/22 Range/Units 23:45 22:32 21:52 WBC (4.8-10.8) K/uL RBC (4.2-5.4) M/uL Hgb (12.0-16.0) g/dL Hct (37-47) % MCV (80-100) fL MCH (25-34) pg MCHC (32-36) g/dL RDW Std Deviation (36.4-46.3) fL RDW Coeff of Joanne (11.5-14.5) % Plt Count (130-400) K/uL MPV (7.4-10.4) fL Immature Gran % (Auto) % Neut % (Auto) % Lymph % (Auto) % Livingston % (Auto) % Eos % (Auto) % Baso % (Auto) % Neut # (Auto) (1.4-6.5) K/uL Lymph # (Auto) (1.2-3.4) K/uL Livingston # (Auto) (0.11-0.59) K/uL Eos # (Auto) (0-0.5) K/uL Baso # (Auto) (0-0.2) K/uL Immature Gran # (Auto) (0.00-0.02) K/uL Sodium (136-145) mmol/L Potassium (3.5-5.1) mmol/L Chloride (98-107) mmol/L Carbon Dioxide (21-32) mmol/L Anion Gap (3-11) BUN (6-23) mg/dl Creatinine (0.6-1.2) mg/dl Est Cr Clr Drug Dosing ml/min Est GFR ( Amer) ml/min Est GFR (Non-Af Amer) ml/min BUN/Creatinine Ratio (10-20) Glucose (70-99(Fasting)) mg/dl Calcium (8.5-10.1) mg/dl Ionized Calcium 1.90 H* (1.12-1.32) mmol/L Phosphorus (2.5-4.9) mg/dl Magnesium (1.7-2.4) mg/dl Iron (35-150) mcg/dl TIBC (250-450) mcg/dl Unsaturated IBC (155-355) mcg/dl Transferrin % Sat (15-50) % Ferritin (8-388) ng/ml Total Bilirubin (0.2-1.0) mg/dl Direct Bilirubin (0-0.2) mg/dl AST (13-39) U/L ALT (7-52) U/L Alkaline Phosphatase (34-104) U/L Total Creatine Kinase (26-192) U/L Troponin I High Sens (0-14) pg/ml Total Protein (6.0-8.3) gm/dl Albumin (3.4-5.0) gm/dl Vitamin B12 (180-914) pg/ml 25-OH Vitamin D Total (30-100) ng/ml TSH (0.300-4.500) uIu/ml PTH Intact 12.1 (12.0-88.0) pg/ml SARS-CoV-2, RNA, NAAT NEGATIVE (NEGATIVE) 01/13/22 01/13/22 01/13/22 Range/Units 21:52 21:52 21:52 WBC 10.09 (4.8-10.8) K/uL RBC 4.10 L (4.2-5.4) M/uL Hgb 10.6 L (12.0-16.0) g/dL Hct 34.3 L (37-47) % MCV 83.7 (80-100) fL MCH 25.9 (25-34) pg MCHC 30.9 L (32-36) g/dL RDW Std Deviation 50.4 H (36.4-46.3) fL RDW Coeff of Joanne 16.5 H (11.5-14.5) % Plt Count 379 (130-400) K/uL MPV 9.6 (7.4-10.4) fL Immature Gran % (Auto) 0.2 % Neut % (Auto) 86.6 % Lymph % (Auto) 7.7 % Livingston % (Auto) 5.0 % Eos % (Auto) 0.3 % Baso % (Auto) 0.2 % Neut # (Auto) 8.74 H (1.4-6.5) K/uL Lymph # (Auto) 0.78 L (1.2-3.4) K/uL Livingston # (Auto) 0.50 (0.11-0.59) K/uL Eos # (Auto) 0.03 (0-0.5) K/uL Baso # (Auto) 0.02 (0-0.2) K/uL Immature Gran # (Auto) 0.02 (0.00-0.02) K/uL Sodium 135 L (136-145) mmol/L Potassium 2.8 L D (3.5-5.1) mmol/L Chloride 97 L (98-107) mmol/L Carbon Dioxide 28 (21-32) mmol/L Anion Gap 10 (3-11) BUN 14 (6-23) mg/dl Creatinine 0.64 (0.6-1.2) mg/dl Est Cr Clr Drug Dosing 67.9 ml/min Est GFR ( Amer) 110.8 ml/min Est GFR (Non-Af Amer) 95.6 ml/min BUN/Creatinine Ratio 21.9 H (10-20) Glucose 96 (70-99(Fasting)) mg/dl Calcium 16.7 H* (8.5-10.1) mg/dl Ionized Calcium (1.12-1.32) mmol/L Phosphorus 1.5 L* (2.5-4.9) mg/dl Magnesium 1.8 (1.7-2.4) mg/dl Iron (35-150) mcg/dl TIBC (250-450) mcg/dl Unsaturated IBC (155-355) mcg/dl Transferrin % Sat (15-50) % Ferritin (8-388) ng/ml Total Bilirubin 0.5 (0.2-1.0) mg/dl Direct Bilirubin 0.1 (0-0.2) mg/dl AST 33 (13-39) U/L ALT 20 (7-52) U/L Alkaline Phosphatase 274 H (34-104) U/L Total Creatine Kinase 35 (26-192) U/L Troponin I High Sens 4.4 (0-14) pg/ml Total Protein 7.6 (6.0-8.3) gm/dl Albumin 3.8 (3.4-5.0) gm/dl Vitamin B12 (180-914) pg/ml 25-OH Vitamin D Total (30-100) ng/ml TSH 2.155 (0.300-4.500) uIu/ml PTH Intact (12.0-88.0) pg/ml SARS-CoV-2, RNA, NAAT (NEGATIVE) PG Care Time/CCT Total # of Minutes Spent Total Time Spent with Patient: Total time spent is greater than 50% in coordination of care (as documented) at patient's floor/unit and/or counseling patient: Coding Level of Care Code 84248 Subseq Hosp Care Lvl 3 Diagnoses Hypercalcemia E83.52 Anxiety F41.9 Liver tumor D49.0 Hypokalemia E87.6
[2022-01-14 08:48] LABS: Basophils # (auto) 0.02 K/uL (0-0.2); Basophils % (auto) 0.3 %; Eosinophils # (auto) 0.01 K/uL (0-0.5); Eosinophils % (auto) 0.1 %; Hematocrit (blood only) 35.4 % (37-47); Hemoglobin 10.6 g/dL (12.0-16.0); Immature Granulocytes # (auto) 0.01 K/uL (0.00-0.02); Immature Granulocytes % (auto) 0.1 %; Lymphocytes # (auto) 0.47 K/uL (1.2-3.4); Lymphocytes % (auto) 6.3 %; Mean Corpuscular Hemoglobin 25.1 pg (25-34); Mean Corpuscular Hgb Conc 29.9 g/dL (32-36); Mean Corpuscular Volume 83.7 fL (80-100); Mean Platelet Volume 9.5 fL (7.4-10.4); Monocytes # (auto) 0.33 K/uL (0.11-0.59); Monocytes % (auto) 4.4 %; Neutrophils # (auto) 6.65 K/uL (1.4-6.5); Neutrophils % (auto) 88.8 %; Platelet Count 337 K/uL (130-400); RDW Coefficient of Variation 16.3 % (11.5-14.5); RDW Standard Deviation 50.1 fL (36.4-46.3); Red Blood Count 4.23 M/uL (4.2-5.4); White Blood Count 7.49 K/uL (4.8-10.8)
[2022-01-14] MEDS: POTASSIUM CHLORIDE 10 MEQ TABCR PO SCH (08:53)
[2022-01-14] MEDS: ENOXAPARIN INJ 40 MG/0.4 ML SYR SQ SCH (08:53)
[2022-01-14] MEDS: busPIRone 15 MG TAB PO SCH ×2 (08:53→21:03)
[2022-01-14] MEDS ORDERED: POTASSIUM PHOSPHATE 15 MMOL in SODIUM CHLORIDE 0.9% 250 ML IV ONE ×2 (09:00→18:30)
[2022-01-14 09:15] LABS: Albumin Level 3.6 gm/dl (3.4-5.0); BUN Creatinine Ratio 20.4 (10-20); Bilirubin Direct 0.1 mg/dl (0-0.2); Bilirubin,Total 0.4 mg/dl (0.2-1.0); Calcium 14.9 mg/dl (8.5-10.1); Creatinine Clr Calc Pharmacy 88.1 ml/min; Est GFR (Non-African American) 104.4 ml/min; Potassium 3.5 mmol/L (3.5-5.1)
[2022-01-14 09:49] LABS: Ferritin 346.7 ng/ml (8-388)
[2022-01-14] MEDS ORDERED: CHOLECALCIFEROL 1,000 UNITS 25 MCG TAB PO SCH (10:45)
[2022-01-14 11:19] LABS: Magnesium 1.7 mg/dl (1.7-2.4); Phosphorus 1.4 mg/dl (2.5-4.9)
[2022-01-14] MEDS ORDERED: Patient's ALLERGY Info needs ENTERED SCH (11:49)
[2022-01-14] MEDS ORDERED: IRON SUCROSE 200 MG in 0.9 % SODIUM CHLORIDE 100 ML IV ONE (14:00)
[2022-01-14] MEDS ORDERED: POTASSIUM CHLORIDE CRTAB 20 MEQ TABCR PO STA (15:37)
[2022-01-14] MEDS ORDERED: FUROSEMIDE INJ 20 MG/2 ML VIAL IV ONE (15:37)
[2022-01-14] MEDS: POTASSIUM CHLORIDE 10 MEQ in SODIUM CHLORIDE 0.9% 1000ML 1,000 ML IV SCH (16:45)
[2022-01-14 17:53] LABS: Albumin Globulin Ratio 1.1 (0.9-2); Albumin Level 3.9 gm/dl (3.4-5.0); BUN Creatinine Ratio 17.5 (10-20); Bilirubin,Total 0.5 mg/dl (0.2-1.0); Calcium 14.2 mg/dl (8.5-10.1); Creatinine Clr Calc Pharmacy 75.8 ml/min; Est GFR (African American) 115.2 ml/min; Est GFR (Non-African American) 99.4 ml/min; Globulin 3.7 gm/dl (2.5-4.0); Magnesium 2.1 mg/dl (1.7-2.4); Phosphorus 1.8 mg/dl (2.5-4.9); Potassium 3.7 mmol/L (3.5-5.1); Total Protein 7.6 gm/dl (6.0-8.3)
[2022-01-15] MEDS: POTASSIUM CHLORIDE 10 MEQ in SODIUM CHLORIDE 0.9% 1000ML 1,000 ML IV SCH (03:42)
[2022-01-15 06:22] LABS: Hematocrit (blood only) 34.4 % (37-47); Hemoglobin 10.3 g/dL (12.0-16.0); Mean Corpuscular Hemoglobin 25.4 pg (25-34); Mean Corpuscular Hgb Conc 29.9 g/dL (32-36); Mean Corpuscular Volume 84.7 fL (80-100); Mean Platelet Volume 9.5 fL (7.4-10.4); Platelet Count 345 K/uL (130-400); RDW Coefficient of Variation 16.7 % (11.5-14.5); RDW Standard Deviation 51.5 fL (36.4-46.3); Red Blood Count 4.06 M/uL (4.2-5.4); White Blood Count 7.74 K/uL (4.8-10.8)
[2022-01-15 06:56] LABS: Albumin Globulin Ratio 1.1 (0.9-2); Albumin Level 3.4 gm/dl (3.4-5.0); BUN Creatinine Ratio 16.7 (10-20); Bilirubin,Total 0.4 mg/dl (0.2-1.0); Calcium 11.9 mg/dl (8.5-10.1); Est GFR (African American) 117.2 ml/min; Est GFR (Non-African American) 101.1 ml/min; Globulin 3.1 gm/dl (2.5-4.0); Magnesium 1.7 mg/dl (1.7-2.4); Phosphorus 1.5 mg/dl (2.5-4.9); Potassium 3.4 mmol/L (3.5-5.1); Total Protein 6.5 gm/dl (6.0-8.3)
[2022-01-15 07:22] VITALS: BP 109/71; PULSE 76; TEMP 97.5; O2SAT 100
[2022-01-15] MEDS ORDERED: POTASSIUM CHLORIDE CRTAB 20 MEQ TABCR PO STA (08:15)
[2022-01-15] MEDS ORDERED: POTASSIUM PHOS 3 MMOL/1 ML INFUSION IV STA (08:16)
--- NOTE | 2022-01-15 08:26 | Hospitalist Progress Note ---
Date of Service January 15, 2022 Assessment & Plan (1) Hypercalcemia: Plan: Patient with severe hypercalcemia - Ca=16.7, ICal=1.9. ALBUMIN NORMAL She was admitted with similar presentation in October 2021. ((History of SCC R bartholins s/p XRT and IV cisplatin in past)) Workup at that time suggestive for malignancy induced hypercalcemia. Patient mildly symptomatic with fatigue and confusion on exam * Reports she had imaging at [facility] and follows with Dr Hartman and Dr Hernández and they are to discuss options for chemotherapy on Monday this upcoming week given new lesions found on recent imaging * Patient reports she hasn't had chemo in approximately 2 years (last admit was reported to have chemo upcoming that week) PTH 12.1 (prior low PTH 9, elevated pth related protein), appropriately low given hypercalcemia but overall from malignancy Given dose ZDA 4mg on 01/13 Continues calcitonin 200u BID (0.4mg dosing SQ BID) IVF +10meq KCl@125cc/hr x 4 bags ordered, given dose lasix 20mg IV x 1 01/14 to assist Ca 16.7 --> 11.9 Ionized ca 1.9--> 1.57 Given dose Iron, mag to assist with BM as reported issues since c-scope, likely from hypercalcemia. +BM Electrolyte replacements as needed Phos 1.5 and ordered 21mmol Kphos in case discharging today. K 3.4. Of note, EKG with ST downsloping depressions in anterolateral leads on admission, likely from electrolyte derangements. Trop not elevated (added to am labs). No CP/SOB reported and repeat EKG with NSR with resolution of ST abnormalities. She is to have f/u with her specialists this week to discuss next best options regarding treatment (2) Anxiety: Plan: Chronic. Fairly well controlled on medications. Some situational anxiety given need for hospitalization. Continue Buspirone 15mg po BID (3) Liver tumor: Plan: Patient with metastatic liver lesion. She follows with Dr. Hartman from [facility] and is due to see her 01/18/22 to discuss further treatment of liver lesions as last admit reports state was to get chemo that week but patient hasn't gotten in approximately 2 years per her account (4) Hypokalemia: Plan: K=2.8, history of hypokalemia on daily KCl --> 60meq provided and 3.5 on repeat Again low, but given lasix --> additional hos Monitor afternoon labs/additional replacement if needed Plan: continued inpatient monitoring Admission and Anticipated Discharge Date Admission Date: January 13, 2022 Results & Data Results & Data ([facility]) Vital Signs (Past 12 Hours) Vital Signs Temp Pulse Resp BP Pulse Ox 01/15/22 07:21 36.4 C L 76 18 109/71 100 01/14/22 22:11 36.7 C 75 16 94/57 L 98 PG Care Time/CCT Total # of Minutes Spent Total Time Spent with Patient: Total time spent is greater than 50% in coordination of care (as documented) at patient's floor/unit and/or counseling patient: Coding Diagnoses Hypercalcemia E83.52 Anxiety F41.9 Liver tumor D49.0 Hypokalemia E87.6
[2022-01-15] MEDS ORDERED: POTASSIUM PHOSPHATE 21 MMOL in SODIUM CHLORIDE 0.9% 500 ML IV ONE (08:30)
[2022-01-15] MEDS ORDERED: MAGNESIUM SULFATE / D5W 1 GM/100 ML BAG IV ONE (08:30)
[2022-01-15] MEDS: POTASSIUM CHLORIDE 10 MEQ TABCR PO SCH (08:53)
[2022-01-15] MEDS: CALCITONIN SALMON 200 UNITS in SYRINGE 0 ML SQ SCH (08:53)
[2022-01-15] MEDS: busPIRone 15 MG TAB PO SCH (08:53)
[2022-01-15] MEDS: ENOXAPARIN INJ 40 MG/0.4 ML SYR SQ SCH (08:55)
--- NOTE | 2022-01-15 12:16 | Discharge Summary ---
Date of Service January 15, 2022 Admission HPI Per Admitting Provider Vilma Olvera is a 62yo female with history of HTN, HLP, Anxiety. 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 Patient now with metastatic disease to the liver (biopsy proven 02/10/21). She follows with Dr. Carey Hartman from Gynecologic/Oncology. Patient was admitted to [facility] 11/01/21 - 11/03/21 with severe hypercalcemia with Ca of 16. She had a low PTH and elevated PTHrP during that visit. Hypercalcemia thought to be secondary to humoral response of malignancy. She was treated with IVF, SC Calcitonin as well as IV Zalendronic acid with improvement in calcium. Patient returns today with 2-3 days of fatigue. She feels decreased exercise tolerance. at bedside reports some very minor confusion. No additional complaints at this time. Patient was seen by her PCP earlier today and had blood work collected. She was called to come to the ER tonight secondary to hypercalcemia. No additional complaints at this time. Patient denies fever, chills, cough, SOB, abdominal pain, nausea, vomiting, diarrhea or constipation. She does report some early satiety as well as ongoing weight loss - reports losing appx 30# in the last 8 months. ER Course: NSS x 1 L Admission Exam Per Admitting Provider General: patient resting comfortably, NAD, non-toxic in appearance, AA&O x 4 Skin: warm, dry, intact, no rashes or lesions HEENT: NC/AT, PERRL, EOMI, anicteric sclera, conjunctiva without injection, external ear normal to inspection and nontender, nares patent, moist mucus membranes, dentition intact, no oropharyngeal lesions, neck supple, trachea midline, no LAD, no thyromegaly, no JVD Heart: +S1/S2, regular, no m/r/g Lungs: equal air entry bilaterally, no rales/rhonchi/wheezes Abd: +BS, soft, NT/ND, no masses/organomegaly/ascites Ext: warm, 2+ pulses in UE/LE bilaterally, no clubbing/cyanosis or edema Neuro: nonfocal, patient AA&O x 4, speech intact, no facial droop, moving all extremities on command with equal strength 5/5 Principal Diagnosis Hypercalcemia Discharge Exam General: frail female resting comfortably sitting up in chair looking out window, NAD, non-toxic in appearance, improvement in energy/appearance, alert/oriented HEENT: head normocephalic, atraumatic, pupils equal and reactive, mmm, trachea midline without deviation Resp: CTAB, no w/c/r, on RA CV: RRR, no m/r/g, no edema GI: +BS, soft, nontender, no HSP noted ; no castro MSK/Neuro: slight weakness 4/5 on 01/14 improved and strength testing equal 5/5 throughout, no focal deficit/slurred speech/facial droop. Answering questions appropriately/no asterixis Skin: warm, dry, no obvious lesions Discharge Data Allergies Allergy/AdvReac Type Severity Reaction Status Date / Time Cjegowd-AXH-ImJ Reductase AdvReac Intermediate LEG CRAMPS Verified 01/20/22 10:02 Inhibitor [Cvkwdeg-Oto-Apn Reductase Inhibitor] Consultations 01/13/22 22:50 ED Decision to Admit Stat Hospital Course (1) Hypercalcemia: Patient with severe hypercalcemia - Ca=16.7, ICal=1.9. ALBUMIN NORMAL She was admitted with similar presentation in October 2021. ((History of SCC R bartholins s/p XRT and IV cisplatin in past)) Workup at that time suggestive for malignancy induced hypercalcemia. Patient mildly symptomatic with fatigue and confusion on exam * Reports she had imaging at [facility] and follows with Dr Hartman and Dr Hernández and they are to discuss options for chemotherapy on Monday this upcoming week given new lesions found on recent imaging * Patient reports she hasn't had chemo in approximately 2 years (last admit was reported to have chemo upcoming that week) PTH 12.1 (prior low PTH 9, elevated pth related protein), appropriately low given hypercalcemia but overall from malignancy Given dose ZDA 4mg on 01/13 and should continue to assist at discharge Continues calcitonin 200u BID (0.4mg dosing SQ BID) IVF +10meq KCl@125cc/hr x 4 bags ordered, given dose lasix 20mg IV x 1 01/14 to assist Ca 16.7 --> 11.9 Ionized ca 1.9--> 1.57 Given dose Iron, mag to assist with BM as reported issues since c-scope, likely from hypercalcemia. +BM Electrolyte replacements as needed Phos 1.5 and ordered 21mmol Kphos as d/c planned for today. K 3.4. Sent on Phosphorus replacement with additional K at discahrge Of note, EKG with ST downsloping depressions in anterolateral leads on admission, likely from electrolyte derangements. Trop not elevated (added to am labs). No CP/SOB reported and repeat EKG with NSR with resolution of ST abnormalities. She is to have f/u with her specialists this week to discuss next best options regarding treatment with Dr Hartman and Dr Hernández from [facility]. Will forward records. (2) Anxiety: Chronic. Fairly well controlled on medications. Some situational anxiety given need for hospitalization. Continue Buspirone 15mg po BID (3) Liver tumor: Patient with metastatic liver lesion. She follows with Dr. Hartman from [facility] and is due to see her 01/18/22 to discuss further treatment of liver lesions as last admit reports state was to get chemo that week but patient hasn't gotten in approximately 2 years per her account (4) Hypokalemia: Replacement ordered, improved. On 10meq daily. Also given lasix IV 01/14 which could contribute Sent on oral K and phos replacement F/u PCP and specialist. She would like ot have repeat labs with them given multiple healthcare systems/coordination discharged home with Total Time Total Time Spent Total Time Spent (In Minutes): 50 Discharge Plan Discharge Items Patient Disposition: Home - Self-Care Reason For Visit: HYPERCALCEMIA Discharge Diagnosis: Hypercalcemia Goals: You have been hospitalized for an acute medical problem. During your stay at [facility], we have made an effort to correct the problem that brought you to the hospital while keeping you as comfortable as possible. Medications were used to bring your condition under control and your discharge instructions will include directions for any medications you should take after leaving the hospital. Please make sure you see your Primary Care Provider as part of your follow up plan. Activity: As commented below Non-emergency contact: Primary Care Provider and Specialist Call non-emergency contact if: you have any medication questions, your symptoms worsen and you have a fever Follow-up/Referrals: Samuel Prasad DO [Primary Care Provider] - 01/19/22 7:30 am (appt with Rebecca Gordon PA-C) Carey Hartman MD [Outside Practitioners] - Diet: Regular Addtl Attending Provider Instructions: You have been hospitalized for hypercalcemia, likely due to underlying malignancy given your history and new lesions found on liver. You were treated with medications and IV fluids to help bring these levels down and they are much improved. You were given a dose of IV Zolendronic acid which will continue to help to bring these levels down and is long acting. discussed, you should continue follow up with your specialists this week and I will forward your hospital stay notes to Dr Hartman for coordination of care. Please return to the ER with any increased confusion, abdominal pain, nausea, or for any other symptoms concerning for you. Pending Studies at Discharge: No Stand-Alone Forms: My [facility] [place], Smoking Cessation Medications and DC Order Prescriptions: New K-Phos Original 500 mg tablet,soluble 1,000 mg PO DAILY Qty: 30 RF: 0 potassium chloride 10 mEq Tablet,Er Particles/Crystals 10 meq PO QAM Qty: 30 RF: 0 Continued buspirone 15 mg tablet 15 mg PO BID Qty: 60 RF: 2 Discontinued potassium chloride [Klor-Con 10] 10 mEq tablet extended release 10 meq PO QAM RF: 0 Discharge Orders: Discharge Order (Routine); Ordered 01/15/22 Ordered By: Marilyn Berrios Admission Data Admit Date/Time: 01/13/22 23:44 Attending Provider: Swapnil Novoa Admit Provider: Maria G Sykes Primary Care Provider: Samuel Prasad Other Providers: Maria G Sykes Other Interventions: Discharge Summary Assessment (RN) Last Done: 01/15/22 15:21 Supervising Physician Co-Signing Physician Notes Patient seen and examined at bedside. Obtained a physical examination and hospital course during face to face encounter. I discussed plan of care with RENE Berrios I reviewed above note and agree with it. Patient admitted and treated for hypercalcemia. Reoeat calcium is much lower now.. Discharge instructions and followup as above. Coding Level of Care Code D/C DAY MANAGEMENT >30 MINS Diagnoses Hypercalcemia E83.52 Anxiety F41.9 Liver tumor D49.0 Hypokalemia E87.6
--- NOTE | 2022-01-15 14:31 | Electrocardiogram Report ---
Test Reason : Blood Pressure : / mmHG Vent. Rate : 104 BPM Atrial Rate : 104 BPM P-R Int : 144 ms QRS Dur : 080 ms QT Int : 392 ms P-R-T Axes : 055 054 061 degrees QTc Int : 515 ms Sinus tachycardia Possible Left atrial enlargement Abnormal ECG When compared with ECG of 01-NOV-2021 10:27, ST now depressed in Anterior leads T wave inversion now evident in Anterior leads QT has lengthened Confirmed by Marino Corral ([id number]) on 01/15/2022 2:30:51 PM Referred By: Samuel Prasad Confirmed By:Marino Corral
--- NOTE | 2022-01-16 08:14 | Electrocardiogram Report ---
Test Reason : Blood Pressure : / mmHG Vent. Rate : 079 BPM Atrial Rate : 079 BPM P-R Int : 152 ms QRS Dur : 086 ms QT Int : 390 ms P-R-T Axes : 067 058 053 degrees QTc Int : 447 ms Normal sinus rhythm Normal ECG When compared with ECG of 13-JAN-2022 21:50, (unconfirmed) ST no longer depressed in Anterolateral leads T wave inversion no longer evident in Inferior leads T wave inversion no longer evident in Anterior leads QT has shortened Confirmed by Marino Corral ([id number]) on 01/16/2022 8:14:21 AM Referred By: Samuel Prasad Confirmed By:Marino Corral
== END 2022-01-15 18:15 | disposition home or self-care (01) | DRG 640 ==
LOC: ED 21:23 → SUATTDRO 23:44 → 3E 23:44